=== PATIENT | female | born 1970 | race Caucasian/White ===

== ENCOUNTER 2019-09-28 18:24 | Emergency (ER) | payer SELFPAY ==
[2019-09-28] MEDS ORDERED: MAGNE/ALUM HYDROXD 30 ML UCUP ONE (19:10)
[2019-09-28] MEDS ORDERED: LIDOCAINE VISCOUS 2% SOLN 15 ML UDC ONE (19:11)
[2019-09-28 19:14] LABS: Urine Blood 2+ (NEG); Urine Glucose 2+ (NEG); Urine Protein 1+ (NEG)
[2019-09-28 19:51] LABS: Urine Bacteria >50 /HPF (<20); Urine Culture Reflex Order NOT NEEDED
--- NOTE | 2019-09-28 19:55 | ER ---
Nurse's Notes [facility] Name: Gwendolyn Castellanos Age: 49 yrs Sex: Female : 1970 Arrival Date: 09/28/2019 Time: 18:26 Bed 23 Private MD: Diagnosis: Low back pain;Radiculopathy, lumbosacral region;Stomatitis and related lesions;Urinary tract infection, site not specified Presentation: 09/28 18:28 Presenting complaint: Patient states: I am having a hard time walking, my L leg has ca1 sharp pains on the thigh area started over a week ago. Then I have sharp pain on my side on the rib area, mostly on the R, and goes to the back which has been going on for a while now, maybe a few months. And I feel sore on the roof of my mouth, on the L side. Transition of care: patient was not received from another setting of care. Onset of symptoms was September 28, 2019. Risk Assessment: Do you want to hurt yourself or someone else? Patient reports no desire to harm self or others. Initial Sepsis Screen: Does the patient meet any 2 criteria? No. Patient's initial sepsis screen is negative. Does the patient have a suspected source of infection? No. Patient's initial sepsis screen is negative. Care prior to arrival: None. 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 - Coronavirus screen:: The patient has NOT traveled to [place] in the past 14 days. The patient has NOT had contact with known/suspected case of Coronavirus?. - Social history:: Smoking status: Patient reports the use of cigarette tobacco products, smokes one-half pack cigarettes per day. - Ebola Screening: : Patient negative for fever greater than or equal to 101.5 degrees Fahrenheit, and additional compatible Ebola Virus Disease symptoms Patient denies exposure to infectious person Patient denies travel to an Ebola-affected area in the 21 days before illness onset No symptoms or risks identified at this time. Screenin:17 Abuse screen: Denies threats or abuse. Nutritional screening: No deficits noted. vc Tuberculosis screening: No symptoms or risk factors identified. Fall Risk None identified. Assessment: 18:45 Reassessment: Provider at bedside. vc 18:48 General: Appears in no apparent distress. comfortable, Behavior is calm, cooperative, vc appropriate for age. Pain: Complains of pain in left leg. Pain: Complains of pain in chest. Pain: Complains of pain in soft palate. Neuro: Level of Consciousness is awake, alert, obeys commands, Oriented to person, place, time. Cardiovascular: Capillary refill < 3 seconds Patient's skin is warm and dry. Respiratory: Airway is patent Respiratory effort is even, unlabored, Respiratory pattern is regular, symmetrical. GI: No signs and/or symptoms were reported involving the gastrointestinal system. : No signs and/or symptoms were reported regarding the genitourinary system. EENT: patient c/o pain in roof of mouth. Derm: Wound noted roof of mouth. Musculoskeletal: Capillary refill < 3 seconds, Range of motion: intact in all extremities. 19:20 Reassessment: Patient states, "are ya'll going to do anything about this leg pain, this vc is my biggest problem." Provider notified. 19:25 Reassessment: Patient and/or family updated on plan of care and expected duration. Pain vc level reassessed. Patient is alert, oriented x 3, equal unlabored respirations, skin warm/dry/pink. 19:45 Reassessment: Patients mother at nurses station stated, "do we know how much longer vc this will be, she's not a patient person." Patients mother informed that it shouldn't be much longer, the provider will see them shortly. 19:51 Reassessment: Patients mother at nursing station asking if we will be doing an xray and vc if we know how much longer it will be. Provider notified. 20:12 Reassessment: Patient and/or family updated on plan of care and expected duration. Pain vc level reassessed. Patient is alert, oriented x 3, equal unlabored respirations, skin warm/dry/pink. Vital Signs: 18:34 BP 116 / 80; Pulse 103; Resp 16 S; Temp 98.1(O); Pulse Ox 95% on R/A; Weight 88.9 kg ca1 (R); Height 5 ft. 2 in. (157.48 cm) (R); Pain 7/10; 19:15 BP 100 / 69; Pulse 95; Resp 17; Pulse Ox 94% on R/A; vc 20:00 BP 105 / 64; Pulse 86; Pulse Ox 94% on R/A; vc 18:34 Body Mass Index 35.85 (88.90 kg, 157.48 cm) ca1 ED Course: 18:26 Patient arrived in ED. as 18:32 Triage completed. ca1 18:34 Arm band placed on right wrist. ca1 18:35 Patient has correct armband on for positive identification. Bed in low position. Call vc light in reach. 18:39 Eden Kim, MEHREEN is Primary Nurse. vc 18:42 Elyse Garcia FNP-C is PHCP. snw 18:42 David Marin MD is Attending Physician. snw 19:16 Urine Culture Sent. vc 19:16 Urine Microscopic Only Sent. vc 19:30 Urine --Ancillary (enter results) Sent. vc 19:30 Urine Dipstick--Ancillary (enter results) Sent. vc 20:37 No provider procedures requiring assistance completed. Patient did not have IV access vc during this emergency room visit. Administered Medications: 19:15 Drug: GI Cocktail without - (Maalox Suspension 30 ml, Lidocaine Liquid 2 % 15 vc ml) Route: PO; 19:31 Follow up: Response: No adverse reaction; Marked relief of symptoms vc 20:33 Drug: TORadol 30 mg Route: IM; Site: right deltoid; vc 20:36 Follow up: Response: No adverse reaction; Medication administered at discharge. vc 20:34 Drug: Rocephin (cefTRIAXone) 1 grams Route: IM; Site: right vastus lateralis; vc 20:35 Follow up: Response: No adverse reaction; Medication administered at discharge. vc Outcome: 19:55 Discharge ordered by . snw 20:38 Discharged to home ambulatory, with family. vc 20:38 Condition: good 20:38 Discharge instructions given to patient, Instructed on discharge instructions, follow up and referral plans. medication usage, Demonstrated understanding of instructions, follow-up care, medications, Prescriptions given X 2. 20:40 Patient left the ED. vc Addendum: 10/01/2019 07:10 Addendum: Culture Results: Positive urine culture. No further action required. Bacteria e b sensitive to prescribed antibiotic. Signatures: Elyse Garcia, DIRECTOR ADVERTISING-C DIRECTOR ADVERTISING-Csnw Justyna Mendez Elizabeth eb Acob, Cheryl RN RN ca1 Eden Kim RN RN vc
--- NOTE | 2019-09-28 19:55 | EDPHYS ---
Physician Documentation [facility] Name: Gwendolyn Castellanos Age: 49 yrs Sex: Female : 1970 Arrival Date: 09/28/2019 Time: 18:26 Bed 23 Private MD: ED Physician David Marin HPI: 09/28 18:52 This 49 yrs old Female presents to ER via Ambulatory with complaints of Pain snw All Over, Mouth Problem. 18:52 Onset: The symptoms/episode began/occurred at an unknown time. Associated signs and snw symptoms: Pertinent positives: bilateral flank pain x several months, left anterior thigh pain x one week, left roof of mouth tender x 2 days.. It is unknown whether or not the patient has had similar symptoms in the past. The patient has not recently seen a physician, and does not have an established primary care provider, just moved to [facility]. 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 - Coronavirus screen:: The patient has NOT traveled to [place] in the past 14 days. The patient has NOT had contact with known/suspected case of Coronavirus?. - Social history:: Smoking status: Patient reports the use of cigarette tobacco products, smokes one-half pack cigarettes per day. - Ebola Screening: : Patient negative for fever greater than or equal to 101.5 degrees Fahrenheit, and additional compatible Ebola Virus Disease symptoms Patient denies exposure to infectious person Patient denies travel to an Ebola-affected area in the 21 days before illness onset No symptoms or risks identified at this time. ROS: 18:50 Constitutional: Negative for fever, chills, and weight loss, Eyes: Negative for injury, snw pain, redness, and discharge, ENT: Negative for injury and discharge, + left roof of mouth discomfort Neck: Negative for injury, pain, and swelling, Cardiovascular: Negative for chest pain, palpitations, and edema, Respiratory: Negative for shortness of breath, cough, wheezing, and pleuritic chest pain, Abdomen/GI: Negative for abdominal pain, nausea, vomiting, diarrhea, and constipation, bilateral flank discomfort x several months, radiation to left anterior thigh x 1 week Back: Negative for injury and pain, : Negative for injury, bleeding, discharge, and swelling, Skin: Negative for injury, rash, and discoloration, Neuro: Negative for headache, weakness, numbness, tingling, and seizure, Psych: Negative for depression, anxiety, suicide ideation, homicidal ideation, and hallucinations. Exam: 18:58 Constitutional: This is a well developed, well nourished patient who is awake, alert, snw and in no acute distress. Head/Face: Normocephalic, atraumatic. Eyes: Pupils equal round and reactive to light, extra-ocular motions intact. Lids and lashes normal. Conjunctiva and sclera are non-icteric and not injected. Cornea within normal limits. Periorbital areas with no swelling, redness, or edema. Neck: Trachea midline, no thyromegaly or masses palpated, and no cervical lymphadenopathy. Supple, full range of motion without nuchal rigidity, or vertebral point tenderness. No Meningismus. Chest/axilla: Normal chest wall appearance and motion. Nontender with no deformity. No lesions are appreciated. Cardiovascular: Regular rate and rhythm with a normal S1 and S2. No gallops, murmurs, or rubs. Normal PMI, no JVD. No pulse deficits. Respiratory: Lungs have equal breath sounds bilaterally, clear to auscultation and percussion. No rales, rhonchi or wheezes noted. No increased work of breathing, no retractions or nasal flaring. Abdomen/GI: Soft, non-tender, with normal bowel sounds. No distension or tympany. No guarding or rebound. No evidence of tenderness throughout. Back: No spinal tenderness. No costovertebral tenderness. Full range of motion. Skin: Warm, dry with normal turgor. Normal color with no rashes, no lesions, and no evidence of cellulitis. MS/ Extremity: Pulses equal, no cyanosis. Neurovascular intact. Full, normal range of motion. Neuro: Awake and alert, GCS 15, oriented to person, place, time, and situation. Cranial nerves II-XII grossly intact. Motor strength 5/5 in all extremities. Sensory grossly intact. Cerebellar exam normal. Normal gait. Psych: Awake, alert, with orientation to person, place and time. Behavior, mood, and affect are within normal limits. Vital Signs: 18:34 BP 116 / 80; Pulse 103; Resp 16 S; Temp 98.1(O); Pulse Ox 95% on R/A; Weight 88.9 kg ca1 (R); Height 5 ft. 2 in. (157.48 cm) (R); Pain 7/10; 19:15 BP 100 / 69; Pulse 95; Resp 17; Pulse Ox 94% on R/A; vc 20:00 BP 105 / 64; Pulse 86; Pulse Ox 94% on R/A; vc 18:34 Body Mass Index 35.85 (88.90 kg, 157.48 cm) ca1 MDM: 18:43 Patient medically screened. snw 19:58 Data reviewed: vital signs, nurses notes. Data interpreted: Pulse oximetry: on room air snw is 94 %. Interpretation: acceptable. Counseling: I had a detailed discussion with the patient and/or guardian regarding: the historical points, exam findings, and any diagnostic results supporting the discharge/admit diagnosis, lab results, the need for outpatient follow up, to return to the emergency department if symptoms worsen or persist or if there are any questions or concerns that arise at home. Special discussion: Based on the history and exam findings, there is no indication for further emergent testing or inpatient evaluation. I discussed with the patient/guardian the need to see the primary care provider for further evaluation of the symptoms. 09/28 18:49 Order name: Urine Culture [facility] 09/28 18:49 Order name: Urine Microscopic Only [facility] 09/28 19:08 Order name: Urine Dipstick--Ancillary (enter results) [facility] 09/28 19:08 Order name: Urine --Ancillary (enter results) [facility] 09/28 19:16 Order name: Urine --Ancillary; Complete Time: 19:30 EDMS 09/28 19:16 Order name: Urine Dipstick-Ancillary; Complete Time: 19:30 EDMS 09/28 18:49 Order name: Urine Dipstick-Ancillary (obtain specimen); Complete Time: 19:04 [facility] 09/28 19:52 Order name: Urine Microscopic Only; Complete Time: 19:53 EDMS Administered Medications: 19:15 Drug: GI Cocktail without - (Maalox Suspension 30 ml, Lidocaine Liquid 2 % 15 vc ml) Route: PO; 19:31 Follow up: Response: No adverse reaction; Marked relief of symptoms vc 20:33 Drug: TORadol 30 mg Route: IM; Site: right deltoid; vc 20:36 Follow up: Response: No adverse reaction; Medication administered at discharge. vc 20:34 Drug: Rocephin (cefTRIAXone) 1 grams Route: IM; Site: right vastus lateralis; vc 20:35 Follow up: Response: No adverse reaction; Medication administered at discharge. vc Disposition: 09/29 07:06 Co-signature as Attending Physician, David Marin MD I agree with the assessment and kdr plan of care. Disposition: 09/28/19 19:55 Discharged to Home. Impression: Low back pain, Radiculopathy, lumbosacral region, Stomatitis and related lesions, Urinary tract infection, site not specified. - Condition is Stable. - Discharge Instructions: Back Pain, Adult, Lumbosacral Radiculopathy, Musculoskeletal Pain, Urinary Tract Infection, Adult, Stomatitis, Cryotherapy, Rehydration, Adult, Heat Therapy, Preventive Dental Care, Adult. - Prescriptions for Augmentin 875- 125 mg Oral Tablet - take 1 tablet by ORAL route every 12 hours for 10 days; 20 tablet. orphenadrine citrate 100 mg Oral Tablet Sustained Release - take 1 tablet by ORAL route 2 times per day As needed; 20 tablet. - Work release form, Medication Reconciliation Form, Thank You Letter, Antibiotic Education, Prescription Opioid Use form. - Follow up: Emergency Department; When: As needed; Reason: Worsening of condition. Follow up: Private Physician; When: 2 - 3 days; Reason: Recheck today's complaints, Continuance of care, Re-evaluation by your physician. Signatures: Dispatcher [employer] EDMS David Marin MD MD kdr Therrien, Shelly, COFFEE HOST-C COFFEE HOST-[place] Corinne Davis RN RN [facility] Eden Kim RN RN vc Corrections: (The following items were deleted from the chart) 09/28 20:40 19:55 09/28/2019 19:55 Discharged to Home. Impression: Low back pain; Radiculopathy, vc lumbosacral region; Stomatitis and related lesions; Urinary tract infection, site not specified. Condition is Stable. Forms are Medication Reconciliation Form, Thank You Letter, Antibiotic Education, Prescription Opioid Use. Follow up: Emergency Department; When: As needed; Reason: Worsening of condition. Follow up: Private Physician; When: 2 - 3 days; Reason: Recheck today's complaints, Continuance of care, Re-evaluation by your physician. snw
[2019-09-28] MEDS ORDERED: LIDOCAINE 2% MPF 5 ML VIAL ONE (20:11)
[2019-09-28] MEDS ORDERED: KETOROLAC 30 MG/ML INJ ONE (20:11)
[2019-09-28] MEDS ORDERED: CEFTRIAXONE 1000 MG/VIAL ONE (20:12)
[2019-09-28] MEDS ORDERED: LIDOCAINE 1% MPF 5 ML VIAL ONE (20:14)
[2019-09-30 02:17] VITALS: TEMP 98.1
[2019-09-30 02:19] VITALS: O2SAT 94
[2019-09-30 02:20] VITALS: BP 105/64
== END 2019-09-28 20:40 | disposition home or self-care (01) ==
LOC: ER 18:24
DX: M54.17 Radiculopathy, lumbosacral region (principal); N39.0 Urinary tract infection, site not specified; K12.1 Other forms of stomatitis; F17.210 Nicotine dependence, cigarettes, uncomplicated
CPT/HCPCS: 81003; 81015; 81025; 87077; 87086; 87088; 87186; 96372; 99283

== ENCOUNTER 2019-11-28 13:47 | Emergency (ER) | payer SELFPAY ==
[2019-11-28] MEDS ORDERED: SMZ./TMP. 800/160 MG TABLET ONE (14:55)
[2019-11-28] MEDS ORDERED: NA CHLORIDE 0.9% 1,000 ML ONE ×2 (14:56→15:57)
[2019-11-28] MEDS ORDERED: FENTANYL CITR 100 MCG/2 ML ONE ×2 (14:56→15:49)
[2019-11-28] MEDS ORDERED: CLINDAMYCIN 900MG/D5W 900 MG/50 ML IVPB IV ONE (14:56)
[2019-11-28] MEDS ORDERED: ONDANSETRON 4 MG/2 ML VIAL ONE ×2 (14:56→15:56)
[2019-11-28] MEDS ORDERED: LIDOCAINE 1% W/EPI 1:100,000 MDV 20 ML VIAL ONE (14:56)
[2019-11-28 15:00] LABS: Basophils % 1.2 % (0-1.3); Hematocrit 45.5 % (36.0-45.0); Lymphocytes % 25.1 % (15.3-44.8); MPV 9.1 fL (7.6-11.3); RBC Red Blood Cell Count 4.94 M/uL (3.86-4.86)
[2019-11-28 15:29] LABS: Albumin 3.2 g/dL (3.4-5.0); Bilirubin Total 0.4 mg/dL (0.2-1.0); Potassium 4.2 mmol/L (3.5-5.1); Protein, Total 7.6 g/dL (6.4-8.2)
[2019-11-28] MEDS ORDERED: INSULIN -REGULAR HUMAN 50 UNIT/0.5 ML ML ONE (15:57)
--- NOTE | 2019-11-28 16:04 | EDPHYS ---
Physician Documentation [facility] Name: Gwendolyn Castellanos Age: 49 yrs Sex: Female : 1970 Arrival Date: 11/28/2019 Time: 13:49 Bed 6 Private MD: Harjit Wells HPI: 11/27 14:43 This 49 yrs old Female presents to ER via Ambulatory with complaints of javi Facial Swelling, Headache, Blurred Vision. 14:43 The patient complains of pain to the nose and left cheek. The patient describes the javi headache as constant. Onset: The symptoms/episode began/occurred 1 day(s) ago. Associated signs and symptoms: The patient has no apparent associated signs or symptoms. Severity of symptoms: At its worst the pain was mild. 14:44 The patient presents with cellulitis of the nose, the patient presents with a swollen javi area of the nose. Onset: The symptoms/episode began/occurred 2 day(s) ago. Possible cause(s): unknown. Associated signs and symptoms: Pertinent positives: erythema, swelling. Historical: - Allergies: 14:15 No Known Allergies; iw - Home Meds: 14:15 None [Active]; iw - PMHx: 14:15 None; iw - PSHx: 14:15 Cholecystectomy; iw - Immunization history:: Adult Immunizations up to date. - Social history:: Smoking status: Patient reports the use of cigarette tobacco products, 2-3 cigarettes per day . - Family history:: not pertinent. ROS: 14:44 Constitutional: Negative for fever, chills, and weight loss, Eyes: Negative for injury, javi pain, redness, and discharge, Neck: Negative for injury, pain, and swelling, Cardiovascular: Negative for chest pain, palpitations, and edema, Respiratory: Negative for shortness of breath, cough, wheezing, and pleuritic chest pain, Abdomen/GI: Negative for abdominal pain, nausea, vomiting, diarrhea, and constipation, Back: Negative for injury and pain, : Negative for injury, bleeding, discharge, and swelling, MS/Extremity: Negative for injury and deformity, Skin: Negative for injury, rash, and discoloration, Neuro: Negative for headache, weakness, numbness, tingling, and seizure, Psych: Negative for depression, anxiety, suicide ideation, homicidal ideation, and hallucinations, Allergy/Immunology: Negative for hives, rash, and allergies, Endocrine: Negative for neck swelling, polydipsia, polyuria, polyphagia, and marked weight changes. 14:44 ENT: Positive for rhinorrhea, painfully swollen internal left nares, laterally. Exam: 14:44 Constitutional: This is a well developed, well nourished patient who is awake, alert, javi and in no acute distress. Eyes: Pupils equal round and reactive to light, extra-ocular motions intact. Lids and lashes normal. Conjunctiva and sclera are non-icteric and not injected. Cornea within normal limits. Periorbital areas with no swelling, redness, or edema. Neck: Trachea midline, no thyromegaly or masses palpated, and no cervical lymphadenopathy. Supple, full range of motion without nuchal rigidity, or vertebral point tenderness. No Meningismus. Chest/axilla: Normal chest wall appearance and motion. Nontender with no deformity. No lesions are appreciated. Cardiovascular: Regular rate and rhythm with a normal S1 and S2. No gallops, murmurs, or rubs. Normal PMI, no JVD. No pulse deficits. Respiratory: Lungs have equal breath sounds bilaterally, clear to auscultation and percussion. No rales, rhonchi or wheezes noted. No increased work of breathing, no retractions or nasal flaring. Abdomen/GI: Soft, non-tender, with normal bowel sounds. No distension or tympany. No guarding or rebound. No evidence of tenderness throughout. Back: No spinal tenderness. No costovertebral tenderness. Full range of motion. Skin: Warm, dry with normal turgor. Normal color with no rashes, no lesions, and no evidence of cellulitis. MS/ Extremity: Pulses equal, no cyanosis. Neurovascular intact. Full, normal range of motion. Neuro: Awake and alert, GCS 15, oriented to person, place, time, and situation. Cranial nerves II-XII grossly intact. Motor strength 5/5 in all extremities. Sensory grossly intact. Cerebellar exam normal. Normal gait. Psych: Awake, alert, with orientation to person, place and time. Behavior, mood, and affect are within normal limits. 14:44 Head/face: Noted is erythema, swelling, tenderness, that is mild, that is moderate, of the nose. 14:44 ENT: Nose: Nasal mucosa: edematous, Examination of the other nostril shows no obvious abnormality, Mouth: is normal, Posterior pharynx: is normal, no acute changes, Airway: normal, no evidence of obstruction. Vital Signs: 14:10 BP 90 / 76; Pulse 107; Resp 16 S; Temp 98.3(TE); Pulse Ox 98% on R/A; Weight 88.45 kg; iw Height 5 ft. 2 in. (157.48 cm); Pain 8/10; 15:00 BP 129 / 70; Pulse 94; Resp 17; Pulse Ox 97% ; bp 16:07 BP 160 / 85; Pulse 99; Resp 19; Pulse Ox 95% ; bp 16:51 BP 167 / 83; Pulse 99; Resp 16; Temp 98.5; Pulse Ox 96% ; bp 14:10 Body Mass Index 35.67 (88.45 kg, 157.48 cm) iw Gee Coma Score: 16:02 Eye Response: spontaneous(4). Verbal Response: oriented(5). Motor Response: obeys [facility] commands(6). Total: 15. Procedures: 16:02 I \T\ D: Incision and drainage was performed for an abscess of the left nose Prepped with [facility] Betadine, Anesthetized with 1 ml's 1% Lidocaine w/ Epi. Incised with #11 blade. Drained small amount purulent fluid. Packed with sterile gauze, Dressing: neosporin the patient tolerated the procedure well. MDM: 13:56 Patient medically screened. [facility] 14:48 Data reviewed: vital signs, nurses notes, lab test result(s). [facility] 16:11 Special discussion: pt was discussed importance of abx therapy at home, close follow javi up, ada 1800 diet , close follow up, rter if symptoms increase or persist. 11/27 14:42 Order name: CBC with Diff; Complete Time: 15:[address] [facility] 11/27 14:42 Order name: Comprehensive Metabolic Panel; Complete Time: 15:[address] [facility] 11/27 14:43 Order name: Wound Culture [facility] 11/27 14:43 Order name: Dressing - Wound; Complete Time: 14:[address] [facility] 11/27 14:43 Order name: Gloves, Sterile; Complete Time: 14:[address] [facility] 11/27 14:43 Order name: Setup Suture Tray; Complete Time: 14:[address] [facility] Administered Medications: 14:45 Drug: Bactrim (160 mg-800 mg (DS) 1 tablet Route: PO; bp 16:54 Follow up: Response: No adverse reaction bp 14:45 Drug: Lidocaine-Epinephrine -1%: (1:100,000) 2 ml Volume: 20 ml; Route: Infiltration; bp 14:45 Drug: Bactroban Ointment 2 % 1 application Route: Topical; Site: affected area; bp 14:50 Drug: Clindamycin 900 mg Route: IVPB; Infused Over: 30 mins; Site: right antecubital; bp 16:55 Follow up: IV Status: Completed infusion; IV Intake: 100ml bp 14:50 Drug: NS 0.9% 1000 ml Route: IV; Rate: 1 bolus; Site: right antecubital; bp 16:54 Follow up: IV Status: Completed infusion; IV Intake: 1000ml bp 14:50 Drug: fentaNYL (PF) 50 mcg Route: IVP; Site: right antecubital; bp 16:54 Follow up: Response: No adverse reaction bp 14:50 Drug: Zofran (Ondansetron) 4 mg Route: IVP; Site: right antecubital; bp 16:54 Follow up: Response: No adverse reaction bp 15:46 Drug: fentaNYL (PF) 50 mcg Route: IVP; Site: right antecubital; bp 16:53 Follow up: Response: Pain is decreased bp 15:50 Drug: Insulin Regular Human 10 units {Co-Signature: hb (Caroline Orozco RN).} Route: bp IVP; Site: right antecubital; 16:54 Follow up: Response: No adverse reaction bp 15:50 Drug: Insulin Regular Human 10 units {Co-Signature: hb (Caroline Orozco RN).} Route: bp Sub-Q; Site: right upper abdomen; 16:53 Follow up: Response: No adverse reaction bp 15:57 Drug: Zofran (Ondansetron) 4 mg Route: IVP; Site: right antecubital; bp 16:53 Follow up: Response: No adverse reaction bp 15:58 Drug: NS 0.9% 1000 ml Route: IV; Rate: 1 bolus; Site: right antecubital; bp 16:53 Follow up: IV Status: Completed infusion; IV Intake: 1000ml bp 16:18 Drug: metFORMIN 1000 mg Route: PO; hb 16:53 Follow up: Response: No adverse reaction bp Disposition: 11/28/19 16:03 Discharged to Home. Impression: Abscess, furuncle and carbuncle of nose, Cellulitis and acute lymphangitis of face - nose, Tobacco abuse counseling, Tobacco use, Type 2 diabetes mellitus, Hyperglycemia, unspecified. - Condition is Stable. - Discharge Instructions: Skin Abscess, Cellulitis, Adult, Type 2 Diabetes Mellitus, Diagnosis, Adult, Hyperglycemia, Incision and Drainage, Steps to Quit Smoking, Smoking Hazards, Skin Abscess, [id number], Cellulitis, Adult, [id number], Type 2 Diabetes Mellitus, Diagnosis, Adult, [id number], Incision and Drainage, Care After. - Prescriptions for Bactroban 2 % Topical Ointment - Apply to affected area 1 application by TOPICAL route every 12 hours; 30 gram. Clindamycin HCl 300 mg Oral Capsule - take 1 capsule by ORAL route every 6 hours for 10 days; 40 capsule. Tylenol- Codeine #3 300-30 mg Oral Tablet - take 2 tablets by ORAL route every 6 hours As needed; 26 tablet. Bactrim DS 800- 160 mg Oral Tablet - take 1 tablet by ORAL route every 12 hours for 10 days; 20 tablet. Metformin 850 mg Oral Tablet - take 1 tablet by ORAL route 2 times per day with morning and evening meals; 20 tablet. - Medication Reconciliation Form, Thank You Letter, Antibiotic Education, Prescription Opioid Use form. - Follow up: Private Physician; When: 2 - 3 days; Reason: Recheck today's complaints, Continuance of care, Re-evaluation by your physician. Follow up: Gwendolyn Johansen; When: 2 - 3 days; Reason: Recheck today's complaints, Re-evaluation by your physician. - Problem is new. - Symptoms have improved. Signatures: Dispatcher [employer] EDHarjit Medina MD MD cha Williams, Irene, RN RN Caroline Orozco RN RN hb Peltier, Brian, RN RN bp Heather Baxter RN hb Corrections: (The following items were deleted from the chart) 16:55 16:03 11/28/2019 16:03 Discharged to Home. Impression: Abscess, furuncle and carbuncle bp of nose; Cellulitis and acute lymphangitis of face - nose; Tobacco abuse counseling; Tobacco use; Type 2 diabetes mellitus; Hyperglycemia, unspecified. Condition is Stable. Discharge Instructions: Skin Abscess, Cellulitis, Adult, Incision and Drainage, Skin Abscess, [id number], Cellulitis, Adult, [id number], Incision and Drainage, Care After. Prescriptions for Bactroban 2 % Topical Ointment - Apply to affected area 1 application by TOPICAL route every 12 hours; 30 gram, Clindamycin HCl 300 mg Oral Capsule - take 1 capsule by ORAL route every 6 hours for 10 days; 40 capsule, Tylenol-Codeine #3 300-30 mg Oral Tablet - take 2 tablets by ORAL route every 6 hours As needed; 26 tablet, Bactrim DS 800-160 mg Oral Tablet - take 1 tablet by ORAL route every 12 hours for 10 days; 20 tablet. and Forms are Medication Reconciliation Form, Thank You Letter, Antibiotic Education, Prescription Opioid Use. Follow up: Private Physician; When: 2 - 3 days; Reason: Recheck today's complaints, Continuance of care, Re-evaluation by your physician. Follow up: Gwendolyn Johansen; When: 2 - 3 days; Reason: Recheck today's complaints, Re-evaluation by your physician. Problem is new. Symptoms have improved. javi
--- NOTE | 2019-11-28 16:04 | ER ---
Nurse's Notes [facility] Name: Gwendolyn Castellanos Age: 49 yrs Sex: Female : 1970 Arrival Date: 11/28/2019 Time: 13:49 Bed 6 Private MD: Diagnosis: Abscess, furuncle and carbuncle of nose;Cellulitis and acute lymphangitis of face-nose;Tobacco abuse counseling;Tobacco use;Type 2 diabetes mellitus;Hyperglycemia, unspecified Presentation: 11/27 14:10 Chief complaint: Patient states: headache and painful, tender area on left side of nose iw since Thursday, denies fever, reports mild cough, has been taking tylenol, and allergy medicine, headache feels like pressure, radiates from front to top of head , aggravated by movement and light, has hx of migraines, this one feels worse. Coronavirus screen: Proceed with normal triage. Patient reports a cough. Patient denies shortness of breath or difficulty breathing. Patient denies measured and/or subjective temperature greater than 100.4F prior to today's visit. Patient denies travel on a cruise ship or to a country the [facility] currently lists as an affected area. Patient denies contact with known and/or suspected case of COVID-19. Ebola Screen: Patient negative for fever greater than or equal to 101.5 degrees Fahrenheit, and additional compatible Ebola Virus Disease symptoms Patient denies exposure to infectious person. Patient denies travel to an Ebola-affected area in the 21 days before illness onset. No symptoms or risks identified at this time. Initial Sepsis Screen: Does the patient meet any 2 criteria? No. Patient's initial sepsis screen is negative. Does the patient have a suspected source of infection? No. Patient's initial sepsis screen is negative. Risk Assessment: Do you want to hurt yourself or someone else? Patient reports no desire to harm self or others. Onset of symptoms was November 25, 2019. 14:10 Method Of Arrival: Ambulatory iw 14:10 Acuity: TERESA 3 iw Triage Assessment: 14:15 Headache History: Denies prior headaches. General: Appears in no apparent distress. bp comfortable, obese, Behavior is cooperative, appropriate for age, anxious. Pain: Pain currently is 7 out of 10 on a pain scale. Pain began gradually, Also complains of no other associated symptoms. EENT: No deficits noted. Neuro: Level of Consciousness is awake, alert, obeys commands, Oriented to person, place, time, situation, Appropriate for age. Cardiovascular: No deficits noted. Respiratory: No deficits noted. GI: No signs and/or symptoms were reported involving the gastrointestinal system. : No signs and/or symptoms were reported regarding the genitourinary system. Derm: Abscess located on left cheek. Musculoskeletal: No deficits noted. Historical: - Allergies: 14:15 No Known Allergies; iw - Home Meds: 14:15 None [Active]; iw - PMHx: 14:15 None; iw - PSHx: 14:15 Cholecystectomy; iw - Immunization history:: Adult Immunizations up to date. - Social history:: Smoking status: Patient reports the use of cigarette tobacco products, 2-3 cigarettes per day . - Family history:: not pertinent. Screenin:03 Abuse screen: Denies threats or abuse. Denies injuries from another. Nutritional bp screening: No deficits noted. Tuberculosis screening: No symptoms or risk factors identified. Fall Risk None identified. Assessment: 14:15 General: SEE TRIAGE NOTE. bp 16:06 Reassessment: D/C ON HOLD FOR IVF COMPLETION. bp 16:51 Reassessment: PT D/C HOME AMBULATORY, DX WITH ABSCESS OF NOSE. bp Vital Signs: 14:10 BP 90 / 76; Pulse 107; Resp 16 S; Temp 98.3(TE); Pulse Ox 98% on R/A; Weight 88.45 kg; iw Height 5 ft. 2 in. (157.48 cm); Pain 8/10; 15:00 BP 129 / 70; Pulse 94; Resp 17; Pulse Ox 97% ; bp 16:07 BP 160 / 85; Pulse 99; Resp 19; Pulse Ox 95% ; bp 16:51 BP 167 / 83; Pulse 99; Resp 16; Temp 98.5; Pulse Ox 96% ; bp 14:10 Body Mass Index 35.67 (88.45 kg, 157.48 cm) iw [place] Coma Score: 16:02 Eye Response: spontaneous(4). Verbal Response: oriented(5). Motor Response: obeys javi commands(6). Total: 15. ED Course: 13:49 Patient arrived in ED. fj1 13:56 Harjit Garcia MD is Attending Physician. javi 14:11 Alli Powell MEHREEN is Primary Nurse. bp 14:14 Triage completed. iw 14:46 Arm band placed on. bp 14:58 Initial lab(s) drawn, by me, sent to lab. Inserted saline lock: 20 gauge in right em1 antecubital area, using aseptic technique. Blood collected. 15:08 Patient has correct armband on for positive identification. Placed in gown. Bed in low bp position. Call light in reach. Side rails up X2. 16:03 Gwendolyn Johansen MD is Referral Physician. [facility] 16:05 Assist provider with I \T\ D: of an abscess on NASAL Set up I\T\D tray. Performed by Harjit Garcia MD Culture sent to lab. Wound packed. iodoform gauze, Patient tolerated well. 16:51 IV discontinued, intact, bleeding controlled, No redness/swelling at site. Pressure bp dressing applied. Administered Medications: 14:45 Drug: Bactrim (160 mg-800 mg (DS) 1 tablet Route: PO; bp 16:54 Follow up: Response: No adverse reaction bp 14:45 Drug: Lidocaine-Epinephrine -1%: (1:100,000) 2 ml Volume: 20 ml; Route: Infiltration; bp 14:45 Drug: Bactroban Ointment 2 % 1 application Route: Topical; Site: affected area; bp 14:50 Drug: Clindamycin 900 mg Route: IVPB; Infused Over: 30 mins; Site: right antecubital; bp 16:55 Follow up: IV Status: Completed infusion; IV Intake: 100ml bp 14:50 Drug: NS 0.9% 1000 ml Route: IV; Rate: 1 bolus; Site: right antecubital; bp 16:54 Follow up: IV Status: Completed infusion; IV Intake: 1000ml bp 14:50 Drug: fentaNYL (PF) 50 mcg Route: IVP; Site: right antecubital; bp 16:54 Follow up: Response: No adverse reaction bp 14:50 Drug: Zofran (Ondansetron) 4 mg Route: IVP; Site: right antecubital; bp 16:54 Follow up: Response: No adverse reaction bp 15:46 Drug: fentaNYL (PF) 50 mcg Route: IVP; Site: right antecubital; bp 16:53 Follow up: Response: Pain is decreased bp 15:50 Drug: Insulin Regular Human 10 units {Co-Signature: bonnie (Caroline Orozco RN).} Route: bp IVP; Site: right antecubital; 16:54 Follow up: Response: No adverse reaction bp 15:50 Drug: Insulin Regular Human 10 units {Co-Signature: bonnei (Caroline Orozco RN).} Route: bp Sub-Q; Site: right upper abdomen; 16:53 Follow up: Response: No adverse reaction bp 15:57 Drug: Zofran (Ondansetron) 4 mg Route: IVP; Site: right antecubital; bp 16:53 Follow up: Response: No adverse reaction bp 15:58 Drug: NS 0.9% 1000 ml Route: IV; Rate: 1 bolus; Site: right antecubital; bp 16:53 Follow up: IV Status: Completed infusion; IV Intake: 1000ml bp 16:18 Drug: metFORMIN 1000 mg Route: PO; hb 16:53 Follow up: Response: No adverse reaction bp Intake: 16:53 IV: 1000ml; Total: 1000ml. bp 16:54 IV: 1000ml; Total: 2000ml. bp 16:55 IV: 100ml; Total: 2100ml. bp Outcome: 16:03 Discharge ordered by . javi 16:51 Discharged to home ambulatory. bp 16:51 Condition: stable 16:51 Discharge instructions given to patient, Instructed on discharge instructions, follow up and referral plans. medication usage, Demonstrated understanding of instructions, follow-up care, medications, Prescriptions given X 4. 16:55 Patient left the ED. bp Signatures: Harjit Garcia MD MD cha Williams, Irene, RN RN Jean-Pierre Mendez em1 Caroline Orozco RN RN hb Peltier, Brian, RN RN bp James, Frank 1 Caroline Orozco RN
[2019-11-28] MEDS ORDERED: METFORMIN HCL 500 MG TAB ONE (16:17)
[2019-11-28 17:19] VITALS: BP 167/83; TEMP 98.5; O2SAT 96
== END 2019-11-28 16:55 | disposition home or self-care (01) ==
LOC: ER 13:47
PROC: 0H91XZZ Drainage of Face Skin, External Approach (ICD-10-PCS; principal; 2019-11-28)
DX: J34.0 Abscess, furuncle and carbuncle of nose (principal); L03.212 Acute lymphangitis of face; E11.65 Type 2 diabetes mellitus with hyperglycemia; Z72.0 Tobacco use; Z71.6 Tobacco abuse counseling
CPT/HCPCS: 36415; 80053; 85025; 87070; 87077; 87186; 87205; 96365; 96366; 96372; 96375; 99284; J2405; J3010; J7030

== ENCOUNTER 2020-08-24 16:51 | Emergency (ER) | payer SELFPAY ==
[2020-08-24 21:26] LABS: Urine Blood 1+ (NEG); Urine Glucose 2+ (NEG); Urine Protein TRACE (NEG); Urine pH 5.5 (5.0-7.0)
[2020-08-24 21:31] LABS: Absolute Lymphocytes (CBC) 5.3 K/uL (0.7-4.9); Basophils % 0.8 % (0-1.3); Hematocrit 45.7 % (36.0-45.0); Lymphocytes % 38.7 % (15.3-44.8); MPV 9.2 fL (7.6-11.3); RBC Red Blood Cell Count 4.94 M/uL (3.86-4.86)
[2020-08-24 21:33] LABS: Protime INR 0.85
[2020-08-24] MEDS ORDERED: MORPHINE 2 MG/ML SYR ONE (21:36)
[2020-08-24] MEDS ORDERED: ONDANSETRON 4 MG/2 ML VIAL ONE (21:36)
[2020-08-24] MEDS ORDERED: FAMOTIDINE 20 MG/2 ML VIAL IV ONE (21:36)
[2020-08-24 21:52] LABS: Barbiturates NEGATIVE (NEGATIVE); Benzodiazepines NEGATIVE (NEGATIVE); Cocaine NEGATIVE (NEGATIVE); METHAMPHETAM NEGATIVE (NEGATIVE); Methadone NEGATIVE (NEGATIVE); Opiates NEGATIVE (NEGATIVE); Phencyclidine NEGATIVE (NEGATIVE); THC Cannibis NEGATIVE (NEGATIVE)
[2020-08-24 21:53] LABS: ALT/SGPT 36 U/L (12-78); AST/SGOT 18 U/L (15-37); Albumin 3.4 g/dL (3.4-5.0); Alkaline Phosphatase 119 U/L (45-117); BUN Blood Urea Nitrogen 11 mg/dL (7-18); Bicarbonate 25 mmol/L (21-32); Bilirubin Direct < 0.1 mg/dL (0-0.2); Bilirubin Total 0.4 mg/dL (0.2-1.0); Glucose Level 204 mg/dL (74-106); Lipase 179 U/L (73-393); NT PRO-BNP 15 pg/mL (<125); Potassium 3.7 mmol/L (3.5-5.1); Protein, Total 7.4 g/dL (6.4-8.2); Sodium Level 139 mmol/L (136-145); Troponin (Emerg Dept Use Only) < 0.02 ng/mL (0.0-0.045)
--- NOTE | 2020-08-24 22:29 | EKG ---
Test Date: 2020-08-24 Test Time: 17:23:36 Real Estate Portfolio Manager: JULIANNA MEASUREMENT RESULTS: Intervals: Rate: 98 WY: 170 QRSD: 72 QT: 350 QTc: 446 Hardy: P: 67 WY: 170 QRS: 28 T: 60 INTERPRETIVE STATEMENTS: Normal sinus rhythm Low voltage QRS Cannot rule out Anterior infarct, age undetermined Abnormal ECG No previous ECG available for comparison Electronically Signed On 08-24-20 22:29:17 SEWING MACHINE REPAIRER HELPER by Ray Newton
--- NOTE | 2020-08-25 00:43 | EDPHYS ---
Physician Documentation [facility] Name: Gwendolyn Castellanos Age: 50 yrs Sex: Female : 1970 Arrival Date: 08/24/2020 Time: 16:52 Bed 15 Private MD: Ad Soni V ED Physician John Alejandra HPI: 08/24 21:17 This 50 yrs old Female presents to ER via Ambulatory with complaints of mh7 Breathing Difficulty, Chest Pain. 21:17 The patient or guardian reports chest pain that is located primarily in the substernal mh7 area. 21:18 Onset: 1 week(s) ago. The pain does not radiate. Associated signs and symptoms: mh7 Pertinent positives: abdominal pain, cough, nausea, Pertinent negatives: diaphoresis, dizziness, headache, lower extremity pain, lower extremity swelling, lightheadedness, near syncope, palpitations, recent travel, shortness of breath, syncope, vomiting. Associated signs and symptoms: Pertinent positives: diarrhea. The chest pain is described as sharp. Duration: The patient or guardian reports multiple episodes, that are intermittent, that wax and wane, with no pattern. Modifying factors: The symptoms are alleviated by nothing. the symptoms are aggravated by nothing. Severity of pain: At its worst the pain was mild 5 day(s) ago, in the emergency department the pain is unchanged. The patient has experienced similar episodes in the past, multiple times. 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 - Social history:: Smoking status: Patient reports the use of cigarette tobacco products, < 1/2 ppd. ROS: 21:18 Constitutional: Negative for fever, chills, and weight loss, Eyes: Negative for injury, mh7 pain, redness, and discharge, ENT: Negative for injury, pain, and discharge, Neck: Negative for injury, pain, and swelling, Respiratory: Negative for shortness of breath, cough, wheezing, and pleuritic chest pain, Back: Negative for injury and pain, : Negative for injury, bleeding, discharge, and swelling. 21:18 Skin: Negative for injury, rash, and discoloration, Neuro: Negative for headache, weakness, numbness, tingling, and seizure, Psych: Negative for depression, anxiety, suicide ideation, homicidal ideation, and hallucinations, Allergy/Immunology: Negative for hives, rash, and allergies, Endocrine: Negative for neck swelling, polydipsia, polyuria, polyphagia, and marked weight changes, Hematologic/Lymphatic: Negative for swollen nodes, abnormal bleeding, and unusual bruising. 21:18 Abdomen/GI: Positive for abdominal pain, nausea, diarrhea, of the epigastric area, right upper quadrant and left upper quadrant, for one week. 21:18 MS/extremity: Positive for pain, of the right hip, intermittently for 3 weeks. Exam: 21:18 Constitutional: This is a well developed, well nourished patient who is awake, alert, mh7 and in no acute distress. Head/Face: Normocephalic, atraumatic. Eyes: Pupils equal round and reactive to light, extra-ocular motions intact. Lids and lashes normal. Conjunctiva and sclera are non-icteric and not injected. Cornea within normal limits. Periorbital areas with no swelling, redness, or edema. Neck: Trachea midline, no thyromegaly or masses palpated, and no cervical lymphadenopathy. Supple, full range of motion without nuchal rigidity, or vertebral point tenderness. No Meningismus. Chest/axilla: Normal chest wall appearance and motion. Nontender with no deformity. No lesions are appreciated. Cardiovascular: Regular rate and rhythm with a normal S1 and S2. No gallops, murmurs, or rubs. Normal PMI, no JVD. No pulse deficits. Respiratory: Lungs have equal breath sounds bilaterally, clear to auscultation and percussion. No rales, rhonchi or wheezes noted. No increased work of breathing, no retractions or nasal flaring. 21:18 Back: No spinal tenderness. No costovertebral tenderness. Full range of motion. Skin: Warm, dry with normal turgor. Normal color with no rashes, no lesions, and no evidence of cellulitis. 21:18 Neuro: Awake and alert, GCS 15, oriented to person, place, time, and situation. Cranial nerves II-XII grossly intact. Motor strength 5/5 in all extremities. Sensory grossly intact. Cerebellar exam normal. Normal gait. Psych: Awake, alert, with orientation to person, place and time. Behavior, mood, and affect are within normal limits. 21:18 Abdomen/GI: Inspection: obese Bowel sounds: normal, in all quadrants, Palpation: moderate abdominal tenderness, in the epigastric area, right upper quadrant and left upper quadrant, Rectal exam: the exam is deferred, because of patient request, Indicators: McBurney's point is not tender, Hoffman's sign is negative, Rovsing's sign is negative, Obturator sign is negative, Psoas sign is negative, Liver: no appreciated palpable abnormalities, Hernia: not appreciated. 21:18 Musculoskeletal/extremity: Extremities: noted in the right lateral hip : tenderness, mild, ROM: intact in all extremities, Circulation is intact in all extremities. Pulses: are normal with no appreciated deficits, Perfusion: the patient is normally perfused throughout, Perfusion: the extremity is normally perfused throughout, Calf tenderness, is absent, Edema, is not appreciated, Sensation intact. Compartment Syndrome exam of affected extremity: is normal. no numbness, no tingling, no sensation deficit, no palor, no weak pulses, Joints: the right hip displays tenderness, Weight bearing: able to fully bear weight, without difficulty, Tendon exam: specific tendon testing normal through active and passive range of motion Calves: are non-tender, have equal circumference. Vital Signs: 17:16 BP 142 / 73; Pulse 97; Resp 17; Temp 97.9(TE); Pulse Ox 99% on R/A; Weight 88.45 kg; ss Height 5 ft. 3 in. (160.02 cm); Pain 8/10; 21:00 BP 119 / 67; Pulse 75; Resp 16; Pulse Ox 97% on R/A; zb 22:00 BP 132 / 63; Pulse 75; Resp 18; Pulse Ox 96% on R/A; zb 23:00 BP 123 / 55; Pulse 76; Resp 16; Pulse Ox 95% on R/A; zb 09 00:00 BP 113 / 48; Pulse 74; Resp 16; Pulse Ox 94% on R/A; zb 08/24 17:16 Body Mass Index 34.54 (88.45 kg, 160.02 cm) ss MDM: 00:39 Differential diagnosis: abnormal EKG, acute myocardial infarction, acute pericarditis, [facility] anxiety, coronary artery disease chest wall pain, congestive heart failure cholecystitis, Cholelithiasis costochondritis, esophagitis, gastritis, pancreatitis, peptic ulcer disease, pneumonia, pneumothorax, pulmonary embolus. HEART Score: History: Slightly Suspicious (0), ECG: Non specific repolarization disturbance / LBTB / PM (1), Age: > 45 and < 65 years (1), Risk Factors: 1 or 2 risk factors (1), [DM] Troponin: < or = 1 x Normal Limit (0), Total Score = 3. Data reviewed: vital signs, nurses notes, lab test result(s), cardiac enzymes, CBC, electrolytes, urinalysis, urine drug screen, EKG, radiologic studies, CT scan, plain films. Data interpreted: Pulse oximetry: on room air is 95 %. Interpretation: normal. Counseling: I had a detailed discussion with the patient and/or guardian regarding: the historical points, exam findings, and any diagnostic results supporting the discharge/admit diagnosis, lab results, radiology results. Response to treatment: the patient's symptoms have resolved after treatment, the patient's blood pressure is in an acceptable range, mental status has returned to baseline, the patient no longer shows bradycardia, the patient is not short of breath, the patient is not tachycardic, the patient's pain is gone, the patient's temperature has normalized. Refusal of service: The patient/guardian displays adequate decision making capability and despite a detailed discussion of alternatives, benefits, risks, and consequences refuses: all lab tests, repeat troponin. 00:42 Patient medically screened. [facility] 08/24 20:57 Order name: Basic Metabolic Panel; Complete Time: 22:13 [facility] 08/24 20:57 Order name: CBC with Diff; Complete Time: 22:13 [facility] 08/24 20:57 Order name: LFT's; Complete Time: 22:13 [facility] 08/24 20:57 Order name: Magnesium; Complete Time: 22:13 [facility] 08/24 20:57 Order name: NT PRO-BNP; Complete Time: 22:13 [facility] 08/24 20:57 Order name: PT-INR; Complete Time: 22:13 [facility] 08/24 20:57 Order name: Troponin (emerg Dept Use Only); Complete Time: 22:13 [facility] 08/24 20:57 Order name: XRAY Chest (1 view) [facility] 08/24 20:57 Order name: Lipase; Complete Time: 22:13 [facility] 08/24 21:16 Order name: CPK; Complete Time: 22:13 [facility] 08/24 21:21 Order name: Urine Dipstick--Ancillary (enter results); Complete Time: 22:13 3 08/24 21:24 Order name: UDS; Complete Time: 22:13 [facility] 08/24 21:24 Order name: Hip Right 2 View XRAY [facility] 08/24 20:57 Order name: EKG; Complete Time: 20:58 [facility] 08/24 20:57 Order name: Cardiac monitoring; Complete Time: 21:12 [facility] 08/24 20:57 Order name: EKG - Nurse/Tech; Complete Time: 21:04 [facility] 08/24 20:57 Order name: IV Saline Lock; Complete Time: 21:12 [facility] 08/24 20:57 Order name: Labs collected and sent; Complete Time: 21:12 [facility] 08/24 20:57 Order name: O2 Per Protocol; Complete Time: 21:04 [facility] 08/24 20:57 Order name: O2 Sat Monitoring; Complete Time: 21:04 [facility] 08/24 20:58 Order name: Urine Dipstick-Ancillary (obtain specimen); Complete Time: 21:05 [facility] 08/24 20:58 Order name: Urine Test (obtain specimen); Complete Time: 21:49 [facility] 08/24 22:14 Order name: CT Chest For PE Angio [facility] 08/24 22:14 Order name: CT Abd/Pelvis - IV Contrast Only [facility] Administered Medications: 08/24 21:31 Drug: Pepcid 20 mg Route: IVP; Site: right antecubital; zb 23:10 Follow up: Response: No adverse reaction zb 21:32 Drug: morphine 2 mg Route: IVP; Site: right antecubital; zb 21:45 Follow up: Response: No adverse reaction; Pain is decreased zb 21:32 Drug: Zofran (Ondansetron) 4 mg Route: IVP; Site: right antecubital; zb 23:11 Follow up: Response: No adverse reaction zb Disposition: 08/25/20 00:42 Patient has left against medical advice. Impression: Upper abdominal pain, unspecified, Diarrhea, unspecified, Chest pain, unspecified. - Patients states they are going to Home. - Condition is Stable. - Discharge Instructions: Abdominal Pain, Adult, Food Choices to Help Relieve Diarrhea, Adult, Diarrhea, Adult, Nonspecific Chest Pain, Veli-ae-Saby. - Prescriptions for Zofran ODT 4 mg Oral tablet,disintegrating - place 1 tablet by TRANSLINGUAL route every 8 hours As needed; 6 tablet. Bentyl 20 mg Oral Tablet - take 1 tablet by ORAL route every 6 hours As needed; 20 tablet. Pepcid 20 mg Oral Tablet - take 1 tablet by ORAL route every 12 hours for 5 days; 10 tablet. Cipro 500 mg Oral Tablet - take 1 tablet by ORAL route every 12 hours for 5 days; 10 tablet. Work release form form. Follow up: Private Physician; When: 1 - 2 days; Reason: Worsening of condition, Recheck today's complaints, Continuance of care, Re-evaluation by your physician. Follow up: Ray Newton MD; When: 1 - 2 days; Reason: Worsening of condition, Recheck today's complaints. - Problem is an ongoing problem. - Symptoms have improved. Signatures: Dispatcher [employer] EDMS Barby lFores RN RN ss John Alejandra MD MD 7 Ciera Rosales RN RN zb Corrections: (The following items were deleted from the chart) 08/25 00:58 00:42 08/25/2020 00:42 Patients has left against medical advice. Impression: Upper zb abdominal pain, unspecified; Diarrhea, unspecified; Chest pain, unspecified. Patient states they are going to Home. Condition is Stable. Follow up: Private Physician; When: 1 - 2 days; Reason: Worsening of condition, Recheck today's complaints, Continuance of care, Re-evaluation by your physician. Follow up: Ray Newton; When: 1 - 2 days; Reason: Worsening of condition, Recheck today's complaints. Problem is an ongoing problem. Symptoms have improved. mh7
--- NOTE | 2020-08-25 00:43 | ER ---
Nurse's Notes [facility] Name: Gwendolyn Castellanos Age: 50 yrs Sex: Female : 1970 Arrival Date: 08/24/2020 Time: 16:52 Bed 15 Private MD: Ad Soni V Diagnosis: Upper abdominal pain, unspecified;Diarrhea, unspecified;Chest pain, unspecified Presentation: 08/24 17:16 Chief complaint: Patient states: Intermittent CP x 1 week that has been more continuous ss today. Pt believes it radiates towards her back and also states that she has spasms in her stomach. Also c/o R upper leg pain that began yesterday. No known injury. Coronavirus screen: Client denies travel out of the [place] in the last 14 days. Ebola Screen: Patient denies exposure to infectious person. Patient denies travel to an Ebola-affected area in the 21 days before illness onset. Initial Sepsis Screen: Does the patient meet any 2 criteria? No. Patient's initial sepsis screen is negative. Does the patient have a suspected source of infection? No. Patient's initial sepsis screen is negative. Risk Assessment: Do you want to hurt yourself or someone else? Patient reports no desire to harm self or others. Onset of symptoms was August 19, 2020. 17:16 Method Of Arrival: Ambulatory ss 17:16 Acuity: TERESA 3 ss Triage Assessment: 22:04 General: Appears in no apparent distress. comfortable. Respiratory:. Respiratory: zb Reports shortness of breath at rest Onset: The symptoms/episode began/occurred weeks , the patient has mild shortness of breath. 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 - Social history:: Smoking status: Patient reports the use of cigarette tobacco products, < 1/2 ppd. Screenin:00 Abuse screen: Denies threats or abuse. Denies injuries from another. Nutritional zb screening: No deficits noted. Tuberculosis screening: No symptoms or risk factors identified. Fall Risk None identified. Assessment: 17:26 Reassessment: EKG completed in triage. Given to Dr. Ramirez. ss 20:30 General: Appears in no apparent distress. comfortable, Behavior is calm, cooperative, zb appropriate for age. Pain: Complains of pain in right hip and epigastric area Pain currently is 8 out of 10 on a pain scale. Quality of pain is described as pressure. Neuro: Level of Consciousness is awake, alert, obeys commands, Oriented to person, place, time. Cardiovascular: Reports chest pain, nausea, shortness of breath, Heart tones S1 S2 present Capillary refill < 3 seconds in bilateral fingers Patient's skin is warm and dry. Rhythm is regular. Respiratory: Airway is patent Respiratory effort is even, unlabored, Respiratory pattern is regular, Breath sounds are clear bilaterally. GI: Abdomen is round non-distended. : No signs and/or symptoms were reported regarding the genitourinary system. EENT: Derm: Skin is intact, is healthy with good turgor, Skin is dry, Skin is normal, Skin temperature is warm. Musculoskeletal: Circulation, motion, and sensation intact. Capillary refill < 3 seconds, in bilateral fingers. Range of motion: intact in all extremities. 21:30 Reassessment: Patient appears in no apparent distress at this time. Patient and/or zb family updated on plan of care and expected duration. Pain level reassessed. Patient is alert, oriented x 3, equal unlabored respirations, skin warm/dry/pink. pt states medication helped pain decreased. 22:30 Reassessment: Patient appears in no apparent distress at this time. Patient and/or zb family updated on plan of care and expected duration. Pain level reassessed. Patient is alert, oriented x 3, equal unlabored respirations, skin warm/dry/pink. no c/o anything at this time. pt resting in bed lights dimmed. 23:00 Reassessment: Patient appears in no apparent distress at this time. Patient and/or zb family updated on plan of care and expected duration. Pain level reassessed. Patient is alert, oriented x 3, equal unlabored respirations, skin warm/dry/pink. pt states she is tired. no c/o at this time. denies pain or n/v. 08/25 00:00 Reassessment: Patient appears in no apparent distress at this time. Patient and/or zb family updated on plan of care and expected duration. Pain level reassessed. Patient is alert, oriented x 3, equal unlabored respirations, skin warm/dry/pink. no c/o of pain. pt states that she is ready to leave. notified ECP. advised pt ECP is waiting on last results. 00:15 Reassessment: pt states she wants to leave AMA. refusing troponin lab draw. notified zb ECP. ECP at bedside to talk to patient. Vital Signs: 08/24 17:16 BP 142 / 73; Pulse 97; Resp 17; Temp 97.9(TE); Pulse Ox 99% on R/A; Weight 88.45 kg; ss Height 5 ft. 3 in. (160.02 cm); Pain 8/10; 21:00 BP 119 / 67; Pulse 75; Resp 16; Pulse Ox 97% on R/A; zb 22:00 BP 132 / 63; Pulse 75; Resp 18; Pulse Ox 96% on R/A; zb 23:00 BP 123 / 55; Pulse 76; Resp 16; Pulse Ox 95% on R/A; zb 08/25 00:00 BP 113 / 48; Pulse 74; Resp 16; Pulse Ox 94% on R/A; zb 08/24 17:16 Body Mass Index 34.54 (88.45 kg, 160.02 cm) ED Course: 08/24 16:52 Patient arrived in ED. ag5 16:54 Ad Soni MD is Private Physician. ag5 17:18 Triage completed. ss 17:19 Arm band placed on right wrist. ss 20:35 Ciera Rosales, MEHREEN is Primary Nurse. zb 20:43 John Alejandra MD is Attending Physician. mh7 21:13 Inserted saline lock: 20 gauge in right antecubital area, using aseptic technique. ar5 Blood collected. 21:21 XRAY Chest (1 view) In Process Unspecified. EDMS 21:48 Hip Right 2 View XRAY In Process Unspecified. EDMS 22:03 Patient has correct armband on for positive identification. Bed in low position. Call zb light in reach. laboratory monitor on. Pulse ox on. NIBP on. Door closed. Noise minimized. 23:20 CT Chest For PE Angio In Process Unspecified. EDMS 23:20 CT Abd/Pelvis - IV Contrast Only In Process Unspecified. EDMS 08/25 00:41 Ray Newton MD is Referral Physician. [facility] 00:58 No provider procedures requiring assistance completed. IV discontinued, intact, zb bleeding controlled, No redness/swelling at site. Pressure dressing applied. Administered Medications: 08/24 21:31 Drug: Pepcid 20 mg Route: IVP; Site: right antecubital; zb 23:10 Follow up: Response: No adverse reaction zb 21:32 Drug: morphine 2 mg Route: IVP; Site: right antecubital; zb 21:45 Follow up: Response: No adverse reaction; Pain is decreased zb 21:32 Drug: Zofran (Ondansetron) 4 mg Route: IVP; Site: right antecubital; zb 23:11 Follow up: Response: No adverse reaction zb Outcome: 08/25 00:58 Discharged to home ambulatory. zb Condition: stable Discharge instructions given to patient, Instructed on discharge instructions, follow up and referral plans. medication usage, Demonstrated understanding of instructions, follow-up care, medications, Prescriptions given X 4. 00:58 Patient left the ED. zb Signatures: Dispatcher [employer] EDSC Barby Flores, MEHREEN RN Cynthia Dye Ajare John Wayne MD MD [facility] iCera Roasles RN RN zb
[2020-08-25 02:16] VITALS: TEMP 97.9
[2020-08-25 02:21] VITALS: BP 113/48; O2SAT 94
--- NOTE | 2020-08-25 09:04 | RAD REPORT ---
EXAM DESCRIPTION: RAD - Chest Single View - 08/24/2020 9:21 pm CLINICAL HISTORY: CHEST PAIN COMPARISON: None TECHNIQUE: AP portable chest image was obtained 08/24/2020 9:21 pm . FINDINGS: Lungs are clear. Heart and vasculature are normal. No measurable pleural effusion and no p neumothorax. No acute bony abnormality seen. No acute aortic findings suspected. IMPRESSION: No acute cardiopulmonary process.
--- NOTE | 2020-08-25 09:11 | RAD REPORT ---
EXAM DESCRIPTION: RAD - Hip Right 2 View - 08/24/2020 9:48 pm CLINICAL HISTORY: PAIN, right leg and hip, without provided history of fall COMPARISON: Abdomen Pelvis W Contrast dated 08/24/2020 FINDINGS: AP and frog-leg views of the right hip were obtained. There is no fracture or dislocation. No AVN or focal head abnormality. No acute or destructive bony p rocess seen. No significant degenerative changes identified. IMPRESSION: Negative right hip examination for acute or significant findings.
--- NOTE | 2020-08-25 12:36 | RAD REPORT ---
EXAM DESCRIPTION: CT - Chest For Pe Angio - 08/25/2020 6:51 am CLINICAL HISTORY: SOB and chest pain radiating to back. COMPARISON: None Available. TECHNIQUE: CTA of the chest obtained following IV administration of iodinated contrast. 3-D/MIP refo rmatted images available. CT of the abdomen and pelvis was then performed in the portal venous phase FINDINGS: Chest: Pulmonary arteries: Contrast bolus is adequate.No filling defects identified in the pulmonary arterie s to suggest pulmonary embolus. Thyroid: No abnormalities of the visualized thyroid. Great Vessels: Great vessels have normal anatomic configuration. Thoracic Aorta: Atherosclerotic calcification of the thoracic aorta. Heart: No cardiomegaly, significant pericardial effusion, or coronary artery atherosclerosis Lymph Nodes: No enlarged mediastinal lymph nodes identified. Esophagus: No abnormalities of the esophagus identified. Other: No additional findings. Lungs: Significant respiratory motion artifact. No definite confluent airspace consolidation. Evaluat ion for subtle groundglass opacities is suboptimal due to motion artifact. Pleura: No pleural effusion or pneumothorax. Trachea/Airways: No abnormalities of the visualized trachea or airways. Abdomen: Liver: The liver has normal size and decreased density. No intrahepatic mass or biliary dilatation. Gallbladder: Prior cholecystectomy. Spleen, Pancreas, and Adrenal Glands: The spleen, pancreas, and adrenal glands are unremarkable. Kidneys: The kidneys have normal size without evidence of solid mass or hydronephrosis. Small l eft renal cyst. Vasculature: Aortoiliac atherosclerosis. IVC is unremarkable. The portal vein is patent. The proxim al visceral and renal arteries are patent. Stomach: The stomach and duodenum have normal course. Other: No free intraperitoneal air. No free fluid or lymphadenopathy. Pelvis: Bladder: Urinary bladder is unremarkable. Bowel: No dilated loops of large or small bowel. Appendix: Normal appendix. Pelvis: Uterus is not enlarged. Bones: No destructive bone lesions identified. IMPRESSION: 1. No pulmonary embolus. 2. No acute abnormality identified in the abdomen or pelvis. 3. Hepatic steatosis. This exam was performed according to our departmental dose-optimization program, which includes autom ated exposure control, adjustment of the mA and/or kV according to patient size and/or use of iterati ve reconstruction technique. Electronically signed by: Levy Enriquez 08/24/2020 11:43 PM FOOD MIXER Due to temporary technical issues with the PACS/Fluency reporting system, reports are being signed by the in house radiologists without review as a courtesy to insure prompt reporting. The interpreting radiologist is fully responsible for the content of the report.
--- NOTE | 2020-08-25 12:41 | RAD REPORT ---
EXAM DESCRIPTION: CT - Abdomen Pelvis W Contrast - 08/25/2020 6:52 am CLINICAL HISTORY: SOB and chest pain radiating to back. COMPARISON: None Available. TECHNIQUE: CTA of the chest obtained following IV administration of iodinated contrast. 3-D/MIP refo rmatted images available. CT of the abdomen and pelvis was then performed in the portal venous phase FINDINGS: Chest: Pulmonary arteries: Contrast bolus is adequate.No filling defects identified in the pulmonary arterie s to suggest pulmonary embolus. Thyroid: No abnormalities of the visualized thyroid. Great Vessels: Great vessels have normal anatomic configuration. Thoracic Aorta: Atherosclerotic calcification of the thoracic aorta. Heart: No cardiomegaly, significant pericardial effusion, or coronary artery atherosclerosis Lymph Nodes: No enlarged mediastinal lymph nodes identified. Esophagus: No abnormalities of the esophagus identified. Other: No additional findings. Lungs: Significant respiratory motion artifact. No definite confluent airspace consolidation. Evaluat ion for subtle groundglass opacities is suboptimal due to motion artifact. Pleura: No pleural effusion or pneumothorax. Trachea/Airways: No abnormalities of the visualized trachea or airways. Abdomen: Liver: The liver has normal size and decreased density. No intrahepatic mass or biliary dilatation. Gallbladder: Prior cholecystectomy. Spleen, Pancreas, and Adrenal Glands: The spleen, pancreas, and adrenal glands are unremarkable. Kidneys: The kidneys have normal size without evidence of solid mass or hydronephrosis. Small l eft renal cyst. Vasculature: Aortoiliac atherosclerosis. IVC is unremarkable. The portal vein is patent. The proxim al visceral and renal arteries are patent. Stomach: The stomach and duodenum have normal course. Other: No free intraperitoneal air. No free fluid or lymphadenopathy. Pelvis: Bladder: Urinary bladder is unremarkable. Bowel: No dilated loops of large or small bowel. Appendix: Normal appendix. Pelvis: Uterus is not enlarged. Bones: No destructive bone lesions identified. IMPRESSION: 1. No pulmonary embolus. 2. No acute abnormality identified in the abdomen or pelvis. 3. Hepatic steatosis. This exam was performed according to our departmental dose-optimization program, which includes autom ated exposure control, adjustment of the mA and/or kV according to patient size and/or use of iterati ve reconstruction technique. Electronically signed by: Levy Enriquez 08/24/2020 11:43 PM SUPERSONIC ENGINEER Due to temporary technical issues with the PACS/Fluency reporting system, reports are being signed by the in house radiologists without review as a courtesy to insure prompt reporting. The interpreting radiologist is fully responsible for the content of the report.
== END 2020-08-25 00:58 | disposition left against medical advice (07) ==
LOC: ER 16:51
DX: R07.9 Chest pain, unspecified (principal); R10.10 Upper abdominal pain, unspecified; R19.7 Diarrhea, unspecified; F17.210 Nicotine dependence, cigarettes, uncomplicated; E11.9 Type 2 diabetes mellitus without complications; Z53.20 Procedure and treatment not carried out because of patient's decision for unspecified reasons
CPT/HCPCS: 36415; 71045; 71275; 74177; 80048; 80076; 80307; 81003; 82550; 83690; 83735; 83880; 84484; 85025; 85610; 93005; 96374; 96375; 99284; J2270; J2405; Q9967

== ENCOUNTER 2020-12-05 10:51 | Emergency (ER) | payer SELFPAY ==
[2020-12-05] MEDS ORDERED: CLINDAMYCIN 600MG/D5W 600 MG/50 ML BAG IV ONE (12:34)
[2020-12-05] MEDS ORDERED: dexAMETHasone 4 MG/ML VIAL ONE (12:34)
[2020-12-05 12:53] LABS: Absolute Lymphocytes (CBC) 4.5 K/uL (0.7-4.9); Basophils % 0.4 % (0-1.3); Hematocrit 44.9 % (36.0-45.0); Lymphocytes % 28.2 % (15.3-44.8); MPV 8.9 fL (7.6-11.3); RBC Red Blood Cell Count 4.77 M/uL (3.86-4.86)
[2020-12-05 13:04] LABS: BUN Blood Urea Nitrogen 13 mg/dL (7-18); Bicarbonate 26 mmol/L (21-32); Glucose Level 158 mg/dL (74-106); Potassium 3.6 mmol/L (3.5-5.1); Sodium Level 142 mmol/L (136-145)
--- NOTE | 2020-12-05 13:50 | RAD REPORT ---
EXAM DESCRIPTION: CT - Soft Tissue Neck W/Contr - 12/05/2020 1:24 pm CLINICAL HISTORY: left neck lymphadenitis COMPARISON: <Comparisons> TECHNIQUE: During dynamic enhancement using 100 milliliters nonionic IV contrast, axial 5 millimeter thick images of the neck were obtained. All CT scans are performed using dose optimization technique as appropriate and may include automated exposure control or mA/KV adjustment according to patient size. FINDINGS: Intracranial portion the exam is unremarkable. No globe or orbital content abnormality see n. Visualized paranasal sinuses are clear. The mastoid air cells are clear. No nasopharyngeal mucosal mass identified. Parapharyngeal fat is normal. Tonsillar tissue is asymmetr ically prominent on the left. No peritonsillar abscess identified. An approximately 18 millimeter area of enhancing, asymmetric prominent tissue is seen in the left ruddy e base of the tongue extending to the vallecula. A 17 millimeter enhancing lymph node is present in t he left-side of the neck just posterior and inferior to the angle of the mandible. An additional 17 x 8 mm enhancing lymph node is present anterior to the carotid sheath at the hyoid bone level. A few a dditional small sub centimeter left-sided cervical lymph nodes are present. The parotid, submandibular and thyroid gland tissue show no suspicious findings. There is a small 6 m m cyst or nodule in the left lobe of the thyroid gland. No vascular abnormality. IMPRESSION: Patient has fullness of the left tonsillar tissue without discrete mass or abscess ident ified. An 18 millimeter area of asymmetric enhancing tissue is seen left base of the tongue extending to the vallecula. Left neck enhancing lymph nodes are present as detailed. Findings are concerning for possible head and neck cancer. Follow up ENT consultation may be needed f or direct visualization.
[2020-12-05] MEDS ORDERED: HYDROCODONE/APAP 5/325 MG TAB ONE (13:54)
--- NOTE | 2020-12-05 14:06 | ER ---
Nurse's Notes [facility] Name: Gwendolyn Castellanos Age: 50 yrs Sex: Female : 1970 Arrival Date: 12/05/2020 Time: 10:51 Bed 6 Private MD: Diagnosis: Cervical Lymphadenopathy - Lymphadenitis vs head and neck cancer Presentation: 12/05 11:30 Chief complaint: Patient states: swelling to L side of neck that began 3 days ago. Was ss seen at [place] and given Augmentin which is not helping. Coronavirus screen: Client denies travel out of the [place] in the last 14 days. Ebola Screen: Patient denies exposure to infectious person. Patient denies travel to an Ebola-affected area in the 21 days before illness onset. Initial Sepsis Screen: Does the patient meet any 2 criteria? No. Patient's initial sepsis screen is negative. Does the patient have a suspected source of infection? No. Patient's initial sepsis screen is negative. Risk Assessment: Do you want to hurt yourself or someone else? Patient reports no desire to harm self or others. Onset of symptoms was December 02, 2020. 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 - Social history:: Smoking status: Patient reports the use of cigarette tobacco products, denies chronic smoking, but will smoke occasionally. - Family history:: not pertinent. - Hospitalizations: : No recent hospitalization is reported. Screenin:49 Abuse screen: Denies threats or abuse. Denies injuries from another. Nutritional ld1 screening: No deficits noted. Tuberculosis screening: No symptoms or risk factors identified. Fall Risk IV access (20 points). Assessment: 12:44 General: Appears in no apparent distress. comfortable, Behavior is calm, cooperative, ld1 appropriate for age. Pain: Complains of pain in neck Pain currently is 8 out of 10 on a pain scale. Quality of pain is described as burning, throbbing, Pain began 1 day ago. Is continuous. Neuro: Level of Consciousness is awake, alert, obeys commands, Oriented to person, place, time, situation. Cardiovascular: Capillary refill < 3 seconds Patient's skin is warm and dry. Rhythm is regular. Respiratory: Airway is patent Respiratory effort is even, unlabored, Respiratory pattern is regular, symmetrical. GI: Abdomen is round non-distended. : No deficits noted. EENT: Throat patient c/o throat pain x 1 day. Derm: No deficits noted. Musculoskeletal: No deficits noted. Vital Signs: 11:31 BP 142 / 86; Pulse 86; Resp 16; Temp 98.0(TE); Pulse Ox 98% on R/A; Weight 86.18 kg; ss Height 5 ft. 3 in. (160.02 cm); Pain 8/10; 12:49 BP 153 / 93; Pulse 94; Resp 18; Temp 99.1(O); Pulse Ox 97% on R/A; Height 5 ft. 3 in. ld1 (160.02 cm); Pain 8/10; 12:49 Body Mass Index 33.66 (86.18 kg, 160.02 cm) ld1 ED Course: 10:51 Patient arrived in ED. as 11:30 Triage completed. ss 11:31 Arm band placed on right wrist. ss 12:02 Nelson Ramirez MD is Attending Physician. rn 12:12 Sri Hernandez RN is Primary Nurse. ld1 12:49 Patient has correct armband on for positive identification. Placed in gown. Bed in low ld1 position. Call light in reach. Side rails up X 1. 12:49 No provider procedures requiring assistance completed. Inserted saline lock: 22 gauge ld1 in right antecubital area, using aseptic technique. Blood collected. 13:24 CT Soft Tissue Neck W/contr In Process Unspecified. EDMS 14:04 Gwendolyn Johansen MD is Referral Physician. rn 14:16 IV discontinued, intact, bleeding controlled. ld1 Administered Medications: 12:37 Drug: Decadron - Dexamethasone 10 mg Route: IVP; Site: right antecubital; ld1 13:15 Follow up: Response: No adverse reaction ld1 12:37 Drug: Clindamycin 600 mg Route: IVPB; Infused Over: 30 mins; Site: right antecubital; ld1 13:15 Follow up: Response: No adverse reaction ld1 13:37 Drug: [place] (HYDROcodone-acetaminophen) 5 mg-325 mg 1 tabs Route: PO; ld1 14:15 Follow up: Response: No adverse reaction ld1 Outcome: 14:05 Discharge ordered by . rn 14:16 Discharged to home ambulatory. ld1 14:16 Condition: stable 14:16 Discharge instructions given to patient, Instructed on discharge instructions, follow up and referral plans. medication usage, Demonstrated understanding of instructions, follow-up care, medications. 14:17 Patient left the ED. ld1 Signatures: Dispatcher [employer] EDMS Justyna Mendez Roman, MD MD rn Smirch, Shelby, RN RN Sri Hernandez RN RN ld1
--- NOTE | 2020-12-05 14:06 | EDPHYS ---
Physician Documentation [facility] Name: Gwendolyn Castellanos Age: 50 yrs Sex: Female : 1970 Arrival Date: 12/05/2020 Time: 10:51 Bed 6 Private MD: ED Physician Nelson Ramirez HPI: 12/05 12:21 This 50 yrs old Female presents to ER via Ambulatory with complaints of Neck rn Swelling. 12:21 The patient or guardian complains of pain, swelling. The symptoms are located on the rn left neck. Onset: The symptoms/episode began/occurred 3 day(s) ago. Associated signs and symptoms: Pertinent negatives: fever, headache, vomiting, weakness. The pain does not radiate. Modifying factors: The symptoms are alleviated by nothing. the symptoms are aggravated by nothing. Severity of symptoms: At their worst the symptoms were moderate, in the emergency department the symptoms are unchanged. The patient has not experienced similar symptoms in the past. The patient has been recently seen by a physician:. Reports just seen at [place] a few days ago for this, given augmentin, feels like getting worse. No fever. Reports pain to left neck, no difficulty breathing or swallowing but does have some pain with swallowing. NO trauma. No hx of cancer. No other areas of swelling.. 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 - Social history:: Smoking status: Patient reports the use of cigarette tobacco products, denies chronic smoking, but will smoke occasionally. - Family history:: not pertinent. - Hospitalizations: : No recent hospitalization is reported. ROS: 12:21 Constitutional: Negative for fever, chills, and weight loss, Eyes: Negative for injury, rn pain, redness, and discharge, Neck: + left neck swelling and pain Cardiovascular: Negative for chest pain, palpitations, and edema, Respiratory: Negative for shortness of breath, cough, wheezing, and pleuritic chest pain, Abdomen/GI: Negative for abdominal pain, nausea, vomiting, diarrhea, and constipation, MS/Extremity: Negative for injury and deformity, Skin: Negative for injury, rash, and discoloration, Neuro: Negative for headache, weakness, numbness, tingling, and seizure. Exam: 12:21 Constitutional: This is a well developed, well nourished patient who is awake, alert, rn and in no acute distress. Head/Face: Normocephalic, atraumatic. ENT: NO stridor, MMM Neck: + tender cervical LAD, no crepitus Cardiovascular: Regular rate and rhythm. No pulse deficits. Respiratory: No increased work of breathing, no retractions or nasal flaring. Skin: Warm, dry with normal turgor. Normal color with no rashes, no lesions, and no evidence of cellulitis. MS/ Extremity: Pulses equal, no cyanosis. Neurovascular intact. Full, normal range of motion. Equal circumference. Neuro: Awake and alert, GCS 15, oriented to person, place, time, and situation. Cranial nerves II-XII grossly intact. Motor strength 5/5 in all extremities. Sensory grossly intact. Cerebellar exam normal. Normal gait. Vital Signs: 11:31 BP 142 / 86; Pulse 86; Resp 16; Temp 98.0(TE); Pulse Ox 98% on R/A; Weight 86.18 kg; ss Height 5 ft. 3 in. (160.02 cm); Pain 8/10; 12:49 BP 153 / 93; Pulse 94; Resp 18; Temp 99.1(O); Pulse Ox 97% on R/A; Height 5 ft. 3 in. ld1 (160.02 cm); Pain 8/10; 12:49 Body Mass Index 33.66 (86.18 kg, 160.02 cm) ld1 MDM: 12:02 Patient medically screened. rn 14:02 Differential diagnosis: lymphadenitis, head and neck cancer, lymphadenopathy. Data rn reviewed: vital signs, nurses notes, lab test result(s), radiologic studies, CT scan, and as a result, I will discharge patient. Counseling: I had a detailed discussion with the patient and/or guardian regarding: the historical points, exam findings, and any diagnostic results supporting the discharge/admit diagnosis, lab results, radiology results, the need for outpatient follow up, to return to the emergency department if symptoms worsen or persist or if there are any questions or concerns that arise at home. Response to treatment: the patient's symptoms have mildly improved after treatment, and as a result, I will discharge patient. Special discussion: I discussed with the patient/guardian in detail that at this point there is no indication for admission to the hospital. It is understood, however, that if the symptoms persist or worsen the patient needs to return immediately for re-evaluation. Based on the history and exam findings, there is no indication for further emergent testing or inpatient evaluation. I discussed with the patient/guardian the need to see the ENT specialist for further evaluation of the symptoms. ED course: Pt feels better, ct shows possible head and neck cancer with asymmetry, has seen Dr. Johansen, will f/u for direct visualization. Pt denies previous symptoms of dysphagia and reports this popped up really quick, and low grade fever favors possible infectious etiology. no abscess. Will dc home with abx and steroids and will f/u with Dr. Eleno ESTES. . 14:06 ED course: Results printed out and handed to patient, explained importance of ENT f/u.. rn 12/05 12:12 Order name: CBC with Diff; Complete Time: 13:22 rn 12/05 12:12 Order name: Basic Metabolic Panel; Complete Time: 13:22 rn 12/05 12:12 Order name: CT Soft Tissue Neck W/contr; Complete Time: 13:52 rn 12/05 13:59 Order name: CREATININE WHOLE BLOOD EDNJ 12/05 12:12 Order name: IV Start; Complete Time: 12:38 rn Administered Medications: 12:37 Drug: Decadron - Dexamethasone 10 mg Route: IVP; Site: right antecubital; ld1 13:15 Follow up: Response: No adverse reaction ld1 12:37 Drug: Clindamycin 600 mg Route: IVPB; Infused Over: 30 mins; Site: right antecubital; ld1 13:15 Follow up: Response: No adverse reaction ld1 13:37 Drug: [place] (HYDROcodone-acetaminophen) 5 mg-325 mg 1 tabs Route: PO; ld1 14:15 Follow up: Response: No adverse reaction ld1 Disposition: 12/05/20 14:05 Discharged to Home. Impression: Cervical Lymphadenopathy - Lymphadenitis vs head and neck cancer. - Condition is Stable. - Discharge Instructions: Throat Cancer, Lymphadenopathy. - Prescriptions for Clindamycin HCl 300 mg Oral Capsule - take 1 capsule by ORAL route every 6 hours for 10 days; 40 capsule. Medrol (Shaun) 4 mg Oral Tablets, Dose Pack - take 1 tablet by ORAL route as directed - follow package instructions; 1 packet. - Medication Reconciliation Form, Thank You Letter, Antibiotic Education, Prescription Opioid Use, Work release form, Family Work Release form. - Follow up: Gwendolyn Johansen MD; When: 2 - 3 days; Reason: Recheck today's complaints, Re-evaluation by your physician. - Problem is new. - Symptoms have improved. Signatures: Dispatcher [employer] EDMS Nelson Ramirez MD MD rn Smirch, Shelby, RN RN ss Sri Hernandez RN RN ld1 Corrections: (The following items were deleted from the chart) 14:17 14:05 12/05/2020 14:05 Discharged to Home. Impression: Cervical Lymphadenopathy - ld1 Lymphadenitis vs head and neck cancer. Condition is Stable. Forms are Medication Reconciliation Form, Thank You Letter, Antibiotic Education, Prescription Opioid Use. Follow up: Gwendolyn Johansen; When: 2 - 3 days; Reason: Recheck today's complaints, Re-evaluation by your physician. Problem is new. Symptoms have improved. rn
[2020-12-05 14:35] VITALS: BP 153/93; TEMP 99.1; O2SAT 97
== END 2020-12-05 14:17 | disposition home or self-care (01) ==
LOC: ER 10:51
DX: R59.0 Localized enlarged lymph nodes (principal); E11.9 Type 2 diabetes mellitus without complications; F17.210 Nicotine dependence, cigarettes, uncomplicated
CPT/HCPCS: 36415; 70491; 80048; 82565; 85025; 96374; 96375; 99284; J1100; Q9967

== ENCOUNTER 2020-12-28 07:06 | Day surgery (SDC) | payer SELFPAY ==
--- NOTE | 2020-12-25 17:40 | EKG ---
Test Date: 2020-12-25 Test Time: 10:14:30 [employer] Resource Teacher: ROSALIE MEASUREMENT RESULTS: Intervals: Rate: 64 TN: 164 QRSD: 86 QT: 426 QTc: 439 [place]: P: 53 TN: 164 QRS: 1 T: 11 INTERPRETIVE STATEMENTS: Normal sinus rhythm Possible Inferior infarct, age undetermined Abnormal ECG Compared to ECG 08/24/2020 17:23:36 No significant changes Electronically Signed On 12-25-20 17:39:57 CDT by Ray Newton
[2020-12-28 07:23] LABS: Specific Gravity >= 1.030 (1.005-1.030)
[2020-12-28] MEDS ORDERED: Ringers Lactate 1,000 ML IV ONE (07:38)
[2020-12-28] MEDS ORDERED: propofoL 200 MG/20 ML VIAL IV ONE (07:54)
[2020-12-28] MEDS ORDERED: ROCURONIUM 50 MG/5 ML VIAL IV ONE (07:54)
[2020-12-28] MEDS ORDERED: LIDOCAINE 2% MPF 5 ML VIAL ONE (07:54)
[2020-12-28] MEDS ORDERED: FENTANYL CITR 100 MCG/2 ML ONE ×2 (07:54→09:52)
[2020-12-28] MEDS ORDERED: MIDAZOLAM HCL 2 MG/2 ML INJ ONE (07:57)
[2020-12-28] MEDS ORDERED: SUGAMMADEX SODIUM 200 MG/2 ML VIAL IV ONE (08:03)
[2020-12-28] MEDS ORDERED: INSULIN -REGULAR HUMAN 50 UNIT/0.5 ML ML IV ONE (08:10)
[2020-12-28] MEDS ORDERED: INSULIN -REGULAR HUMAN 50 UNIT/0.5 ML ML ONE (08:35)
[2020-12-28] MEDS ORDERED: LIDOCAINE 1% W/EPI 1:100,000 MDV 20 ML VIAL ONE (08:42)
[2020-12-28] MEDS ORDERED: EPINEPHRINE/PF 1 MG/ML AMP ONE (08:42)
[2020-12-28] MEDS ORDERED: ONDANSETRON 4 MG/2 ML VIAL ONE (09:35)
[2020-12-28] MEDS ORDERED: ALBUTEROL INHALER 60 PUFF/8 GM IH ONE (09:41)
[2020-12-28] MEDS ORDERED: dexAMETHasone 4 MG/ML VIAL ONE (09:45)
[2020-12-28] MEDS ORDERED: PROMETHAZINE INJ 25 MG/ML AMP ONE (09:52)
[2020-12-28 10:42] VITALS: TEMP 97.6; O2SAT 97
--- NOTE | 2020-12-28 10:48 | P.BOP ---
Preoperative diagnosis: VC neoplasm uncertain behavior Postoperative diagnosis: same Primary procedure: DL with telescope and excision of R TVF lesion Regulator Tester: NONE,NONE Estimated blood loss: <5ml Specimen: R TVF lesion Findings: round, red, smooth mass on phonating edge of R TVF Anesthesia: General Complications: None Implants: None Fluids & blood products: see anesthesia record Transferred to: Recovery Room Condition: Good
[2020-12-28] MEDS ORDERED: ACETAMINOPHEN 325 MG TABLET ONE (11:51)
--- NOTE | 2020-12-28 12:45 | OP ---
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 Procedure: Direct laryngoscopy with telescope and excision of vocal fold lesion. Indication For Procedure: Ms. Castellanos is a 50-year-old, who presented with concern for a neck mass. During her evaluation, she was noted to have significant dysphonia and due to a history of tobacco use, a flexible laryngoscopy was performed demonstrating a round, red vocal fold lesion. The risks, benefits, and alternatives to the procedure were discussed with the patient, who agreed to proceed. Procedure In Detail: The patient was placed under general anesthesia via oral endotracheal tube. A shoulder roll was placed. The neck was extended and the head was supported. A rubber tooth guard wa s placed over the upper dentition. The [facility] laryngoscope was fitted with a 15-degree rigid t elescope and used to perform a direct laryngoscopy. The palate, uvula, posterior pharyngeal wall, to nsils, base of tongue, vallecula, epiglottis, hypopharynx, piriform sinuses all appeared within carla l limits. The true vocal fold demonstrated mild hypervascularity, which was worse on the right side with moderate polypoid changes worse on the left. The right vocal fold had a moderate-sized round, e xophytic smooth red lesion. Photographic documentation was obtained. Secretions surrounding the les ion were suctioned. The lesion was grasped at its base using a laryngeal alligator forceps. The up- biting laryngeal scissors were used to incise the mucosa at the base of the lesion removing it comple tely from the underlying tissues. The site was treated with direct pressure using an epinephrine-soa ked cotton pledget. After several minutes, the pledget was removed and the area appeared to be hemos tatic. A small additional edge of mucosal tissue was advanced over the defect to aid in healing. Pr ior to removal of the lesion, a laryngeal injection needle was used to inject 0.3 mL of 1% lidocaine with epinephrine into the right vocal fold in order to aid in hemostasis and to elevate the lesion aw ay from the underlying vocal cord tissues. At the conclusion of the procedure, the patient was retur denisse to care of Anesthesia for awakening and extubation in the operating room, which proceeded without difficulty. Complications: None. Disposition: The patient will be discharged home later today with voice rest and follow up with Dr. Johansen in 10 days for re-evaluation. CELSO Voice ID: [id number] Report ID: [id number]
[2020-12-28 12:57] VITALS: BP 115/61
== END 2020-12-28 12:15 | disposition home or self-care (01) ==
LOC: OR 07:06
PROVIDERS: ATTEND Otolaryngology
PROC: 0CBT8ZZ Excision of Right Vocal Cord, Via Natural or Artificial Opening Endoscopic (ICD-10-PCS; principal; 2020-12-28 08:45)
DX: J38.1 Polyp of vocal cord and larynx (principal); R49.0 Dysphonia; Z72.0 Tobacco use; Z20.822 Contact with and (suspected) exposure to COVID-19
CPT/HCPCS: 81025; 82947; 88305; 93005; J0171; J1100; J2250; J2405; J2550; J2704; J3010; J7120; U0002

== ENCOUNTER 2022-06-16 01:16 | Emergency (ER) | payer SELFPAY ==
--- OUTSIDE RECORDS SUMMARY | 2022-06-16 01:20 | XMS REPORT | Continuity of Care Document ---
:1970 Author Organization [facility] t Address [address] [place] [address] Dr. Hubbard [address] [place] [address] Care Team Providers Name Role Phone PCP, PATIENT DOES NOT HAVE A Primary Care Physician UnavailTOÑITO Gordillo Attending Clinician Unavailable Toñito Contreras MD Attending Clinician MOHIT GONZALES Attending Clinician Unavailable Mohit Larsen Attending Clinician FLORENTINO MALONEY Admitting Clinician Unavailable DONNA GUZMAN Admitting Clinician Unavailable Payers Payer Name Policy Type Policy Number Effective Date Expiration Date S walter [facility] [id number] 2021 HEALTHCARE 00:00:00 Problems Condition Condition Condition Status Onset Resolution Last Treating Co mments Source Name Details Category Date Date Treatment Clinician Date No known No known Disease Unive rs active active ity of problems problems [facility] Allergies, Adverse Reactions, Alerts Allergy Allergy Status Severity Reaction(s) Onset Inactive Treating Comm ents Source Name Type Date Date Clinician NO KNOWN Drug Active Univers ALLERGIE Class ity of [facility] Social History Social Habit Start Date Stop Date Quantity Comments Source Exposure to 2022-05-30 2022-06-09 Not sure [facility] SARS-CoV-2 (event) 00:00:00 17:40:00 Medica l Branch Sex Assigned At [birth year] [facility] 00:00:00 00:00:00 Medical Branch Smoking Status Start Date Stop Date Source Tobacco smoking consumption Univ [facility] Medical unknown Branch Medications Ordered Filled Start Stop Current Ordering Indication Dosage Frequency Signature Comments Components Source Medication Medication Date Date Medication? Clinician (SIG) Name Name ibuprofen 2021-08 Yes [id number] 800mg Take 1 Univers 800 mg 0-24 tablet by ity of tablet 00:00: mouth [place] 00 every 6 Medical (six) Branch hours as needed for Pain (scale 4-6). ibuprofen 2021- No 600mg 600 mg, Uni vers (IBU) 11-16 Oral, ity of tablet 600 23:00: 22:00 ONCE, 1 [place] mg 00 :00 dose, On Medical 11/16/21 Branch at 1800, MEERA cephALEXin No 500mg 500 mg, Un helene (KEFLEX) 11-16 Oral, ity of capsule 500 21:45: 22:00 [place] :[place] dose, On Medical 11/16/21 Branch at 1700, MEERA
Re ason for Anti-Infec tive: Documented Infection< br>Documen partha Infection Site: Skin / Soft Tissue
Duration of Therapy: Other (see Comments) doxycycline No 100mg 100 mg, U nivers hyclate 11-16 Oral, ity of (Vibramycin 21:45: 22:00 [place] capsule 00 :00 dose, On Medica l 100 mg 11/16/21 Branch at 1700, MEERA
Re ason for Anti-Infec tive: Documented Infection< br>Documen partha Infection Site: Skin / Soft Tissue
Duration of Therapy: Other (see Comments) doxycycline 2021- Yes [id number] 100mg Take 1 Univers hyclate 100 4-02 capsule by it y of mg capsule [place]:00[place] (two) Medical times Branch daily. ibuprofen 2021-0 Yes [id number] 600mg Take 1 Univers 600 mg 4-02 tablet by ity of tablet 00:00: mouth [place] 00 every 8 Medical (eight) Branch hours as needed for Pain (scale 4-6). doxycycline 2021- Yes [id number] 100mg Take 1 Univers hyclate 100 4-02 capsule by it y of mg capsule [place]:00[place] (two) Medical times Branch daily. ibuprofen Yes [id number] 600mg Take 1 Univers 600 mg 4-02 tablet by ity of tablet 00:00: mouth [place] 00 every 8 Medical (eight) Branch hours as needed for Pain (scale 4-6). cephALEXin 2021- No [id number] 500mg Take 1 Univers (KEFLEX) 11-16 capsule by ity of 500 mg 00:00: 04:59 mouth 4 [place] capsule 00 :00 (four) Medical times Branch daily for 10 days. Vital Signs Vital Name Observation Time Observation Value Comments Source Systolic blood 2022-06-09 22:43:00 143 mm[Hg] [facility] Diastolic blood 2022-06-09 22:43:00 80 mm[facility]Hg[facility] rate 2022-06-09 22:43:00 91 /min [facility] Body temperature 2022-06-09 22:43:00 36.67 Laurie [facility] Respiratory rate 2022-06-09 22:43:00 18 /min [facility] Body weight 2022-06-09 22:43:00 86.183 kg [facility] Oxygen saturation in 2022-06-09 22:43:00 97 /min University of Arterial blood by [facility] Pulse oximetry Branch Systolic blood 2021-11-16 21:27:00 165 mm[Hg] [facility]iver [facility] Diastolic blood 2021-11-16 21:27:00 94 mm[Hg] [facility] rate 2021-11-16 21:27:00 88 /[facility] 2021-11-16 21:27:00 36.67 Laurie [facility] Respiratory rate 2021-11-16 21:27:00 17 /min [facility] Body weight 2021-11-16 21:27:00 86.183 kg [facility] Oxygen saturation in 2021-11-16 21:27:00 97 /min University of Arterial blood by [facility] Pulse oximetry Branch Procedures Procedure Date / Time Performing Clinician Source Performed XR CHEST 2 VW 2022-06-09 23:35:43 Florentino Maloney [facility] LIPASE 2022-06-09 23:22:00 Florentino Maloney [facility] TROPONIN I 2022-06-09 23:22:00 Florentino Maloney [facility] COMP. METABOLIC PANEL 2022-06-09 23:22:00 Florentino Maloney [facility] ([id number]) [facility] CBC WITH DIFF 2022-06-09 23:22:00 Florentino Maloney [facility] PROTHROMBIN TIME / INR 2022-06-09 23:22:00 Florentino Maloney [facility] D-DIMER 2022-06-09 23:22:00 Florentino Maloney [facility] ACTIVATED PARTIAL 2022-06-09 23:22:00 Florentino Maloney [facility] N-TERMINAL PRO-BNP 2022-06-09 23:22:00 Florentino Maloney [facility] CONSENT/REFUSAL FOR 2022-06-09 22:39:17 Doctor Unassigned, No [facility] [place] [facility] Name [facility] XR HAND 3+ VW RIGHT 2021-11-16 23:01:00 Rachel Lopez [facility] CONSENT/REFUSAL FOR 2021-11-16 21:27:37 Doctor Unassigned, No [facility] [place] [facility] Name [facility] Encounters Start End Encounter Admission Attending Care Care Encounter Source Date/Time Date/Time Type Type Clinicians Facility Department ID 2022-06-09 2022-06-09 Emergency X BEN, [facility] ERT [id number] Univers 17:44:00 20:26:00 TOÑITO wright [facility] 2022-06-09 2022-06-09 Emergency Ben, [place] [id number] Univers 17:44:00 20:26:00 Toñito JEANIE [id number] ity [id number] [facility] [id number] [place] [id number] Branch 2021-11-16 2021-11-16 Emergency X CHRISTIAN, [facility] ERT [id number] Univers 16:32:00 19:24:00 MOHIT wright [facility] 2021-11-16 2021-11-16 Emergency Vincent, [place] [id number] Univers 16:32:00 19:24:00 [facility] [id number] it y of [id number] Walter hodges [id number] [facility] 014 Branch Results This patient has no known results.
[2022-06-16 01:44] LABS: Urine Blood Trace-lysed (Negative); Urine Glucose 3+ (Negative); Urine Protein Negative (Negative); Urine Specific Gravity 1.015 (1.005-1.030)
[2022-06-16 02:11] LABS: Absolute Lymphocytes (CBC) 5.4 K/uL (0.7-4.9); Hematocrit 42.9 % (36.0-45.0); Lymphocytes % 44.2 % (15.3-44.8); MCV 91.5 fL (80-100); RBC Red Blood Cell Count 4.69 M/uL (3.86-4.86)
[2022-06-16 02:49] LABS: Albumin 3.1 g/dL (3.4-5.0); Bilirubin Total 0.4 mg/dL (0.2-1.0); Potassium 3.9 mmol/L (3.5-5.1); Protein, Total 7.1 g/dL (6.4-8.2); Troponin High Sensitivity 4.8 pg/mL (<58.9)
[2022-06-16] MEDS ORDERED: ONDANSETRON 4 MG/2 ML VIAL ONE (03:24)
[2022-06-16] MEDS ORDERED: FENTANYL CITR 100 MCG/2 ML ONE (03:24)
[2022-06-16] MEDS ORDERED: NA CHLORIDE 0.9% 1,000 ML ONE (03:24)
[2022-06-16] MEDS ORDERED: CIPROFLOXACIN 400mg IV 0 MG/0 ML BAG IV ONE (04:04)
[2022-06-16] MEDS ORDERED: METRONIDAZOLE 500mg IVPB 500 MG/100 ML BAG IV ONE (04:04)
[2022-06-16] MEDS ORDERED: CIPROFLOXACIN HCL 500 MG TAB ONE (04:29)
--- NOTE | 2022-06-16 04:56 | EDPHYS ---
Physician Documentation [facility] Name: Gwendolyn Castellanos Age: 51 yrs Sex: Female : 1970 Arrival Date: 06/16/2022 Time: 01:21 Bed 5 Private MD: ED Physician Harjit Garcia HPI: 06/16 04:00 This 51 yrs old Female presents to ER via Ambulatory with complaints of javi Breathing Difficulty, Abdominal Pain. 04:00 The patient has shortness of breath at rest, with light activity. Onset: The javi symptoms/episode began/occurred 2 day(s) ago. Duration: The symptoms are continuous, and are steadily getting worse. The patient's shortness of breath has no apparent modifying factors. Associated signs and symptoms: The patient has no apparent associated signs or symptoms. Severity of symptoms: At their worst the symptoms were mild in the emergency department the symptoms are unchanged. The patient has not experienced similar symptoms in the past. 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 - Social history:: Smoking status: Smoking status: Patient reports the use of cigarette tobacco products, smokes one-half pack cigarettes per day. ROS: 04:01 Constitutional: Negative for fever, chills, and weight loss, Eyes: Negative for injury, javi pain, redness, and discharge, ENT: Negative for injury, pain, and discharge, Neck: Negative for injury, pain, and swelling, Cardiovascular: Negative for chest pain, palpitations, and edema, Respiratory: Negative for shortness of breath, cough, wheezing, and pleuritic chest pain, Back: Negative for injury and pain, : Negative for injury, bleeding, discharge, and swelling, MS/Extremity: Negative for injury and deformity, Skin: Negative for injury, rash, and discoloration, Neuro: Negative for headache, weakness, numbness, tingling, and seizure, Psych: Negative for depression, anxiety, suicide ideation, homicidal ideation, and hallucinations, Allergy/Immunology: Negative for hives, rash, and allergies, Endocrine: Negative for neck swelling, polydipsia, polyuria, polyphagia, and marked weight changes, Hematologic/Lymphatic: Negative for swollen nodes, abnormal bleeding, and unusual bruising. 04:01 Abdomen/GI: Positive for abdominal pain, of the left upper quadrant. Exam: 04:01 Constitutional: This is a well developed, well nourished patient who is awake, alert, javi and in no acute distress. Head/Face: Normocephalic, atraumatic. Eyes: Pupils equal round and reactive to light, extra-ocular motions intact. Lids and lashes normal. Conjunctiva and sclera are non-icteric and not injected. Cornea within normal limits. Periorbital areas with no swelling, redness, or edema. ENT: Nares patent. No nasal discharge, no septal abnormalities noted. Tympanic membranes are normal and external auditory canals are clear. Oropharynx with no redness, swelling, or masses, exudates, or evidence of obstruction, uvula midline. Mucous membranes moist. Neck: Trachea midline, no thyromegaly or masses palpated, and no cervical lymphadenopathy. Supple, full range of motion without nuchal rigidity, or vertebral point tenderness. No Meningismus. Chest/axilla: Normal chest wall appearance and motion. Nontender with no deformity. No lesions are appreciated. Cardiovascular: Regular rate and rhythm with a normal S1 and S2. No gallops, murmurs, or rubs. Normal PMI, no JVD. No pulse deficits. Respiratory: Lungs have equal breath sounds bilaterally, clear to auscultation and percussion. No rales, rhonchi or wheezes noted. No increased work of breathing, no retractions or nasal flaring. Back: No spinal tenderness. No costovertebral tenderness. Full range of motion. Skin: Warm, dry with normal turgor. Normal color with no rashes, no lesions, and no evidence of cellulitis. MS/ Extremity: Pulses equal, no cyanosis. Neurovascular intact. Full, normal range of motion. Neuro: Awake and alert, GCS 15, oriented to person, place, time, and situation. Cranial nerves II-XII grossly intact. Motor strength 5/5 in all extremities. Sensory grossly intact. Cerebellar exam normal. Normal gait. Psych: Awake, alert, with orientation to person, place and time. Behavior, mood, and affect are within normal limits. 04:01 ECG was reviewed by the Attending Physician. 04:01 Abdomen/GI: Inspection: abdomen appears normal, Bowel sounds: normal, Palpation: mild abdominal tenderness, in the left upper quadrant, Liver: no appreciated palpable abnormalities, Hernia: not appreciated. Vital Signs: 01:41 BP 121 / 58; Pulse 77; Resp 18; Temp 97; Pulse Ox 95% on R/A; Weight 77.11 kg; Height 5 tw5 ft. 2 in. (157.48 cm); Pain 7/10; 03:34 BP 114 / 69; Pulse 80; Resp 16; Pulse Ox 96% on R/A; ll3 01:41 Body Mass Index 31.09 (77.11 kg, 157.48 cm) tw5 MDM: 01:56 Patient medically screened. javi 04:03 Differential diagnosis: Anxiety Reaction Pulmonary Embolism reactive airway disease. javi Antibiotic administration: The patient is discharged and will get outpatient antibiotics, Cipro, Flagyl. The patient's Wells Deep Vein Thrombosis Score was calculated as follows: Total Score: 0-2 Pts- Low Risk. The patient's pulmonary embolism risk score was calculated as follows: Total Score: 0-2 points. This patient was found to be at low risk for a pulmonary embolism by using the Well's assessment criteria. Immunization status: Influenza vaccine: Data reviewed: vital signs, nurses notes, lab test result(s), EKG, radiologic studies, CT scan, plain films. Data interpreted: campus monitor: rate is 80 beats/min, rhythm is regular, Pulse oximetry: on room air is 96 %. Test interpretation: by ED physician or midlevel provider: ECG, plain radiologic studies. Counseling: I had a detailed discussion with the patient and/or guardian regarding: the historical points, exam findings, and any diagnostic results supporting the discharge/admit diagnosis, lab results, radiology results. 06/16 01:40 Order name: CBC with Diff; Complete Time: 04:00 tw5 06/16 01:40 Order name: CMP; Complete Time: 04:00 tw5 06/16 01:40 Order name: Lipase; Complete Time: 04:00 tw5 06/16 01:44 Order name: Urine Dipstick-Ancillary; Complete Time: 01:57 EDMS 06/16 01:46 Order name: XRAY Chest (1 view) 5 06/16 01:58 Order name: CT Chest For PE Angio [facility] 06/16 01:58 Order name: CT Abd/Pelvis - IV Contrast Only [facility] 06/16 02:08 Order name: Troponin High Sensitivity; Complete Time: 04:00 EDHI 06/16 01:40 Order name: IV Saline Lock; Complete Time: 02:00 tw5 06/16 01:40 Order name: Labs collected and sent; Complete Time: 02:00 [facility] 06/16 01:40 Order name: Urine Dipstick-Ancillary (obtain specimen); Complete Time: 01:40 [facility] 06/16 01:46 Order name: EKG; Complete Time: 01:47 tw 06/16 01:46 Order name: Cardiac monitoring; Complete Time: 03:33 06/16 01:46 Order name: EKG - Nurse/Tech; Complete Time: 01:54 06/16 01:46 Order name: O2 Per Protocol; Complete Time: 03:29 [facility] 06/16 01:46 Order name: O2 Sat Monitoring; Complete Time: 03:29 EC:01 Rate is 74 beats/min. QRS Hawi is Normal. OR interval is normal. QRS interval is javi normal. QT interval is normal. No Q waves. T waves are Normal. No ST changes noted. Clinical impression: Normal ECG and No evidence of ischemia. Interpreted by me. Reviewed by me. Administered Medications: 03:29 Drug: NS 0.9% 1000 ml Route: IV; Rate: 1 bolus; Site: right antecubital; ll3 05:11 Follow up: Response: No adverse reaction; IV Status: Completed infusion; IV Intake: ll3 1000ml 03:29 Drug: fentaNYL (PF) 50 mcg Route: IVP; Site: right antecubital; ll3 05:10 Follow up: Response: No adverse reaction ll3 03:30 Drug: Zofran (Ondansetron) 4 mg Route: IVP; Site: right antecubital; ll3 05:10 Follow up: Response: No adverse reaction ll3 04:10 Drug: Flagyl (metroNIDAZOLE) 500 mg Volume: 100 ml; Route: IVPB; Rate: 200 ml/hr; ll3 Infused Over: 30 mins; Site: right antecubital; 04:41 Follow up: Response: No adverse reaction; IV Status: Completed infusion; IV Intake: ll3 100ml 04:22 Not Given (Duplicate Order): Cipro (ciprofloxacin) 400 mg 200 ml IVPB once over 60 mins [facility] 04:31 Drug: Cipro (ciprofloxacin) 500 mg Route: PO; ll3 05:10 Follow up: Response: No adverse reaction ll3 04:57 Drug: fentaNYL (PF) 25 mcg Route: IVP; Site: right antecubital; ll3 05:10 Follow up: Response: No adverse reaction ll3 Disposition Summary: 06/16/22 04:55 Discharge Ordered Location: Home javi Problem: new javi Symptoms: have improved javi Condition: Stable javi Diagnosis - Abdominal tenderness - left upper quadrant javi - Dyspnea javi - Tobacco abuse counseling javi - Tobacco use javi - Pleurisy javi - Abnormal findings on diagnostic imaging of other specified body structures - javi multiple scattered pulmonary nodules Followup: javi - With: Ad Soni MD - When: 2 - 3 days - Reason: Recheck today's complaints, Continuance of care, Re-evaluation by your physician Followup: javi - With: Darrell Nash MD - When: 2 - 3 days - Reason: Recheck today's complaints, Continuance of care, Re-evaluation by your physician Followup: javi - With: Turner Richards MD - When: 2 - 3 days - Reason: Recheck today's complaints, Re-evaluation by your physician Discharge Instructions: - Discharge Summary Sheet javi - Abdominal Pain, Adult javi - Pleurisy javi - Steps to Quit Smoking javi - Health Risks of Smoking javi - Abdominal Pain, Adult, [id number] javi - Steps to Quit Smoking, [id number] javi - Pleurisy, [id number] [facility] Forms: - Medication Reconciliation Form javi - Thank You Letter javi - Antibiotic Education javi - Prescription Opioid Use javi - Work release form ll3 Prescriptions: - Flagyl 500 mg Oral Tablet - take 1 tablet by ORAL route every 8 hours for 7 days; 21 tablet; Refills: 0, [facility] Product Selection Permitted - Pepcid 20 mg Oral Tablet - take 1 tablet by ORAL route every 12 hours for 10 days; 20 tablet; Refills: 0, [facility] Product Selection Permitted - Zofran 4 mg Oral Tablet - take 1 tablet by ORAL route every 12 hours As needed; 20 tablet; Refills: 0, javi Product Selection Permitted - Cipro 500 mg Oral Tablet - take 1 tablet by ORAL route every 12 hours for 7 days; 14 tablet; Refills: 0, [facility] Product Selection Permitted - dicyclomine 20 mg Oral Tablet - take 1 tablet by ORAL route 4 times per day; 28 tablet; Refills: 0, Product javi Selection Permitted Signatures: Dispatcher [employer] EDHarjit Medina MD MD cha Wood, Tiffany tw5 Nathalie Kline RN RN ll3 Corrections: (The following items were deleted from the chart) 02:07 01:47 BASIC METABOLIC PANEL+C.LAB.BRZ ordered. EDMS EDMS 02:07 01:47 Troponin High Sensitivity+C.LAB.BRZ ordered. EDMS EDMS
--- NOTE | 2022-06-16 04:56 | ER ---
Nurse's Notes [facility] Name: Gwendolyn Castellanos Age: 51 yrs Sex: Female : 1970 Arrival Date: 06/16/2022 Time: 01:21 Bed 5 Private MD: Diagnosis: Abdominal tenderness-left upper quadrant;Dyspnea;Tobacco abuse counseling;Tobacco use;Pleurisy;Abnormal findings on diagnostic imaging of other specified body structures-multiple scattered pulmonary nodules Presentation: 06/16 01:41 Chief complaint: Patient states: "My stomach on the left side has been hurting me for tw5 the past week, the pain is just getting worse. It is to the point now that it is causing me to feel short of breath, I can hardly even lay on my left side the pain so bad.". Coronavirus screen: Vaccine status: Patient reports being unvaccinated. Ebola Screen: Patient negative for fever greater than or equal to 101.5 degrees Fahrenheit, and additional compatible Ebola Virus Disease symptoms Patient denies exposure to infectious person. Patient denies travel to an Ebola-affected area in the 21 days before illness onset. Initial Sepsis Screen: Does the patient meet any 2 criteria? No. Patient's initial sepsis screen is negative. Does the patient have a suspected source of infection? Yes: Acute abdominal pain. Risk Assessment: Do you want to hurt yourself or someone else? Patient reports no desire to harm self or others. Onset of symptoms is unknown. 01:41 Method Of Arrival: Ambulatory tw5 01:41 Acuity: TERESA 3 tw5 Triage Assessment: 01:43 General: Appears in no apparent distress. Behavior is calm, cooperative, appropriate tw5 for age. Pain: Complains of pain in left upper quadrant Pain currently is 7 out of 10 on a pain scale. Respiratory: Reports shortness of breath due to pain in left side of chest Onset: The symptoms/episode began/occurred at an unknown time. the patient has mild shortness of breath. 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 - Social history:: Smoking status: Smoking status: Patient reports the use of cigarette tobacco products, smokes one-half pack cigarettes per day. Screenin:34 Abuse screen: Denies threats or abuse. Denies injuries from another. Nutritional ll3 screening: No deficits noted. Tuberculosis screening: No symptoms or risk factors identified. Fall Risk None identified. Assessment: 03:34 General: Appears in no apparent distress. uncomfortable, Behavior is calm, cooperative. ll3 Pain: Complains of pain in abdomen Pain radiates to back Pain currently is 7 out of 10 on a pain scale. Pain began 10 days ago Is continuous. Neuro: Level of Consciousness is awake, alert, obeys commands, Oriented to person, place, time, situation. Cardiovascular: Rhythm is sinus rhythm with PACs. Respiratory: Airway is patent Respiratory effort is even, unlabored, Respiratory pattern is regular, symmetrical. Respiratory: GI: Abdomen is round non-distended, Reports upper abdominal pain, nausea, Patient currently denies constipation, diarrhea, vomiting. Derm: Skin is pink, warm \\T\\ dry. Vital Signs: 01:41 BP 121 / 58; Pulse 77; Resp 18; Temp 97; Pulse Ox 95% on R/A; Weight 77.11 kg; Height 5 tw5 ft. 2 in. (157.48 cm); Pain 7/10; 03:34 BP 114 / 69; Pulse 80; Resp 16; Pulse Ox 96% on R/A; ll3 01:41 Body Mass Index 31.09 (77.11 kg, 157.48 cm) tw5 ED Course: 01:21 Patient arrived in ED. bp1 01:42 Triage completed. tw5 01:43 Arm band placed on right wrist. tw5 01:54 EKG done, by ED staff, reviewed by Harjit Garcia MD. Urine collected: clean catch tw5 specimen, cloudy. 01:56 Harjit Garcia MD is Attending Physician. [facility] 02:00 CBC with Diff Sent. tw5 02:00 CMP Sent. tw5 02:00 Lipase Sent. tw5 02:00 Initial lab(s) drawn, by la, sent to lab. Inserted saline lock: 20 gauge in right tw5 antecubital area, using aseptic technique. Blood collected. 02:07 XRAY Chest (1 view) In Process Unspecified. EDMS 02:16 Troponin High Sensitivity Sent. tw5 02:16 CBC with Diff Sent. tw5 02:16 CMP Sent. tw5 02:16 Lipase Sent. tw5 03:23 Nelly Youssef, RN is Primary Nurse. ke1 03:31 CT Chest For PE Angio In Process Unspecified. EDMS 03:32 CT Abd/Pelvis - IV Contrast Only In Process Unspecified. EDMS 03:34 Patient has correct armband on for positive identification. Placed in gown. Bed in low ll3 position. Call light in reach. Side rails up X 1. Client placed on continuous cardiac and pulse oximetry monitoring. NIBP monitoring applied. 04:53 Ad Soni MD is Referral Physician. javi 04:53 Darrell Nash MD is Referral Physician. javi 04:59 Turner Richards MD is Referral Physician. javi 05:10 No provider procedures requiring assistance completed. IV discontinued, intact, ll3 bleeding controlled, No redness/swelling at site. Pressure dressing applied. Administered Medications: 03:29 Drug: NS 0.9% 1000 ml Route: IV; Rate: 1 bolus; Site: right antecubital; ll3 05:11 Follow up: Response: No adverse reaction; IV Status: Completed infusion; IV Intake: ll3 1000ml 03:29 Drug: fentaNYL (PF) 50 mcg Route: IVP; Site: right antecubital; ll3 05:10 Follow up: Response: No adverse reaction ll3 03:30 Drug: Zofran (Ondansetron) 4 mg Route: IVP; Site: right antecubital; ll3 05:10 Follow up: Response: No adverse reaction ll3 04:10 Drug: Flagyl (metroNIDAZOLE) 500 mg Volume: 100 ml; Route: IVPB; Rate: 200 ml/hr; ll3 Infused Over: 30 mins; Site: right antecubital; 04:41 Follow up: Response: No adverse reaction; IV Status: Completed infusion; IV Intake: ll3 100ml 04:22 Not Given (Duplicate Order): Cipro (ciprofloxacin) 400 mg 200 ml IVPB once over 60 mins javi 04:31 Drug: Cipro (ciprofloxacin) 500 mg Route: PO; ll3 05:10 Follow up: Response: No adverse reaction ll3 04:57 Drug: fentaNYL (PF) 25 mcg Route: IVP; Site: right antecubital; ll3 05:10 Follow up: Response: No adverse reaction ll3 Medication: 05:10 VIS not applicable for this client. ll3 Intake: 04:41 IV: 100ml; Total: 100ml. ll3 05:11 IV: 1000ml; Total: 1100ml. ll3 Outcome: 04:55 Discharge ordered by . javi 05:10 Discharged to home ambulatory, with family. ll3 05:10 Condition: stable 05:10 Discharge instructions given to patient, Instructed on discharge instructions, follow up and referral plans. medication usage, Demonstrated understanding of instructions, follow-up care, medications, Prescriptions given X 5 05:11 Patient left the ED. ll3 Signatures: Dispatcher [employer] EDMS Harjit Garcia MD MD cha Paniauga, Brittany bp1 Wood, Tiffany tw5 Nathalie Kline RN RN ll3 Nelly Youssef RN RN ke1 Corrections: (The following items were deleted from the chart) 02:07 02:00 BASIC METABOLIC PANEL+C.LAB.BRZ drawn and sent. tw5 EDMS 02:07 02:00 Troponin High Sensitivity+C.LAB.BRZ drawn and sent. tw5 EDMS
[2022-06-16 05:49] VITALS: TEMP 97
[2022-06-16 05:54] VITALS: BP 114/69; O2SAT 96
--- NOTE | 2022-06-16 15:56 | EKG ---
Test Date: 2022-06-16 Test Time: 01:50:51 Analytical Lead: MEASUREMENT RESULTS: Intervals: Rate: 74 IA: 160 QRSD: 86 QT: 410 QTc: 455 [place]: P: 38 IA: 160 QRS: -18 T: 17 INTERPRETIVE STATEMENTS: Normal sinus rhythm Cannot rule out Anterior infarct, age undetermined Abnormal ECG Compared to ECG 12/25/2020 10:14:30 No significant changes Electronically Signed On 06-16-22 15:55:03 CDT by Ga Hernandez
--- NOTE | 2022-06-17 16:38 | RAD REPORT ---
EXAM DESCRIPTION: CT - Abdomen Pelvis W Contrast - 06/16/2022 3:30 am CLINICAL HISTORY: 51 years Female dyspnea COMPARISON: CT chest and CT abdomen pelvis 08/24/2020. TECHNIQUE: Intravenous low osmolar contrast. Coronal and sagittal reformations including 3D maximu m intensity projections. This exam was performed according to our departmental dose-optimization program, which includes autom ated exposure control, adjustment of the mA and/or kV according to patient size and/or use of iterati ve reconstruction technique. FINDINGS: CTA CHEST: Exam degraded by motion. PULMONARY ARTERIAL SYSTEM: Contrast bolus is adequate. No CT evidence for pulmonary embolism. CARDIAC: Normal. AORTA/VASCULAR: No aneurysm. No aortic dissection. Mild thoracic aortic atherosclerosis. LYMPH NODES/MEDIASTINUM: No thoracic adenopathy. CENTRAL AIRWAYS: Central airways are patent. LUNGS: No focal consolidation. Multiple scattered bilateral pulmonary nodules, with insurance representative no dule in the right lower lobe measuring 5 mm (axial lung image 68). PLEURA: Normal. ESOPHAGUS: Collapsed and not well assessed by CT, without obvious abnormality. THYROID: Negative, where seen. CHEST WALL: Normal. THORACIC SKELETAL: No acute finding. ADDITIONAL CHEST FINDINGS: None. CT ABDOMEN/PELVIS: Abdomen: Stomach: Within normal limits Liver: No focal lesions. Hepatic steatosis. No intrahepatic ductal distention. Gallbladder: Surgically absent. Pancreas: Within normal limits Spleen: Within normal limits Right kidney: No hydronephrosis. No focal lesion. Left kidney: No hydronephrosis. Subcentimeter ovoid hypodensity, too small to characterize. Adrenal glands: Within normal limits Vascular structures: No abdominal aortic aneurysm. Mild atherosclerosis of the abdominal aorta. No ao rtic dissection. Origin of the celiac axis, SMA, and LYNN are patent. Origins of the bilateral renal a rteries are patent. Nodes: No lymphadenopathy by size criteria Pelvis: Small bowel: No significant distention. Appendix: Within normal limits Colon: No distention or acute pericolonic edema. Peritoneum: No free intraperitoneal fluid or air. Bones: No acute bone findings. Bladder: Unremarkable. Reproductive organs: No acute findings. Soft tissues: No acute findings. IMPRESSION: 1. No evidence of acute pulmonary embolus. 2. No focal consolidation. 3. Multiple scattered bilateral pulmonary nodules, with insurance representative nodule in the right lower lo be measuring 5 mm. If patient is low risk for malignancy, no routine follow-up imaging is recommend ed; if patient is high risk for malignancy, a non-contrast Chest CT at 12 months is optional. If perf ormed and the nodule is stable at 12 months, no further follow-up is recommended. 4. No acute findings in the abdomen or pelvis. 5. Hepatic steatosis. Electronically signed by: Ford Flores MD 06/16/2022 4:01 AM CDT Due to temporary technical issues with the PACS/Fluency reporting system, reports are being signed by the in house radiologists without review as a courtesy to insure prompt reporting. The interpreting radiologist is fully responsible for the content of the report.
--- NOTE | 2022-06-17 16:40 | RAD REPORT ---
EXAM DESCRIPTION: RAD - Chest Single View - 06/16/2022 2:05 am CLINICAL HISTORY: 51 years, Female, PAIN COMPARISON: None. FINDINGS: Single view of the chest was obtained portable. No prior films are available for compariso n. Lung limit slightly decreased. The cardiomediastinal silhouette demonstrate to be unremarkable. Th e heart is not enlarged. The thoracic aorta is unremarkable. The pulmonary vasculature is normal dist ribution. Costophrenic angles are sharp. No areas of consolidation or masses are seen. The rest o f the soft tissue and bony structures demonstrate to be unremarkable. IMPRESSION: No acute cardiopulmonary disease identified. Electronically signed by: Brice Jeong MD 06/16/2022 2:32 AM CDT Due to temporary technical issues with the PACS/Fluency reporting system, reports are being signed by the in house radiologists without review as a courtesy to insure prompt reporting. The interpreting radiologist is fully responsible for the content of the report.
--- NOTE | 2022-06-17 16:47 | RAD REPORT ---
EXAM DESCRIPTION: CT - Chest For Pe Angio - 06/16/2022 3:30 am CLINICAL HISTORY: 51 years Female dyspnea COMPARISON: CT chest and CT abdomen pelvis 08/24/2020. TECHNIQUE: Intravenous low osmolar contrast. Coronal and sagittal reformations including 3D maximu m intensity projections. This exam was performed according to our departmental dose-optimization program, which includes autom ated exposure control, adjustment of the mA and/or kV according to patient size and/or use of iterati ve reconstruction technique. FINDINGS: CTA CHEST: Exam degraded by motion. PULMONARY ARTERIAL SYSTEM: Contrast bolus is adequate. No CT evidence for pulmonary embolism. CARDIAC: Normal. AORTA/VASCULAR: No aneurysm. No aortic dissection. Mild thoracic aortic atherosclerosis. LYMPH NODES/MEDIASTINUM: No thoracic adenopathy. CENTRAL AIRWAYS: Central airways are patent. LUNGS: No focal consolidation. Multiple scattered bilateral pulmonary nodules, with medical representative no dule in the right lower lobe measuring 5 mm (axial lung image 68). PLEURA: Normal. ESOPHAGUS: Collapsed and not well assessed by CT, without obvious abnormality. THYROID: Negative, where seen. CHEST WALL: Normal. THORACIC SKELETAL: No acute finding. ADDITIONAL CHEST FINDINGS: None. CT ABDOMEN/PELVIS: Abdomen: Stomach: Within normal limits Liver: No focal lesions. Hepatic steatosis. No intrahepatic ductal distention. Gallbladder: Surgically absent. Pancreas: Within normal limits Spleen: Within normal limits Right kidney: No hydronephrosis. No focal lesion. Left kidney: No hydronephrosis. Subcentimeter ovoid hypodensity, too small to characterize. Adrenal glands: Within normal limits Vascular structures: No abdominal aortic aneurysm. Mild atherosclerosis of the abdominal aorta. No ao rtic dissection. Origin of the celiac axis, SMA, and LYNN are patent. Origins of the bilateral renal a rteries are patent. Nodes: No lymphadenopathy by size criteria Pelvis: Small bowel: No significant distention. Appendix: Within normal limits Colon: No distention or acute pericolonic edema. Peritoneum: No free intraperitoneal fluid or air. Bones: No acute bone findings. Bladder: Unremarkable. Reproductive organs: No acute findings. Soft tissues: No acute findings. IMPRESSION: 1. No evidence of acute pulmonary embolus. 2. No focal consolidation. 3. Multiple scattered bilateral pulmonary nodules, with medical representative nodule in the right lower lo be measuring 5 mm. If patient is low risk for malignancy, no routine follow-up imaging is recommend ed; if patient is high risk for malignancy, a non-contrast Chest CT at 12 months is optional. If perf ormed and the nodule is stable at 12 months, no further follow-up is recommended. 4. No acute findings in the abdomen or pelvis. 5. Hepatic steatosis. Electronically signed by: Ford Flores MD 06/16/2022 4:01 AM CDT Due to temporary technical issues with the PACS/Fluency reporting system, reports are being signed by the in house radiologists without review as a courtesy to insure prompt reporting. The interpreting radiologist is fully responsible for the content of the report.
== END 2022-06-16 05:11 | disposition home or self-care (01) ==
LOC: ER 01:16
DX: R10.812 Left upper quadrant abdominal tenderness (principal); R06.00 Dyspnea, unspecified; R09.1 Pleurisy; R91.8 Other nonspecific abnormal finding of lung field; Z72.0 Tobacco use; Z71.6 Tobacco abuse counseling
CPT/HCPCS: 36415; 71045; 71275; 74177; 80053; 81003; 83690; 84484; 85025; 93005; 96361; 96365; 96375; 99284; J0744; J2405; J3010; J7030; Q9967

== ENCOUNTER 2023-01-21 09:33 | Emergency (ER) | payer SELFPAY ==
--- OUTSIDE RECORDS SUMMARY | 2023-01-21 09:37 | XMS REPORT | Continuity of Care Document ---
:1970 Author Organization [facility] t Address [address] [place] [address] [place] [id number] Care Team Providers Name Role Phone Pcp, Patient Does Not Have A Primary Care Physician +[phone] [id number] Pcp, Patient Does Not Have A Attending Clinician [id number] [phone] TOÑITO CONTRERAS Attending Clinician Unavailable Toñito Contreras MD Attending Clinician MOHIT GONZALES Attending Clinician Unavailable Mohit Larsen Attending Clinician FLORENTINO MALONEY Admitting Clinician Unavailable DONNA GUZMAN Admitting Clinician Unavailable Payers Payer Name Policy Type Policy Number Effective Date Expiration Date S ource Problems Condition Condition Condition Status Onset Resolution Last Treating Co mments Source Name Details Category Date Date Treatment Clinician Date No known No known Disease Unive rs active active ity of problems problems [facility] Allergies, Adverse Reactions, Alerts Allergy Allergy Status Severity Reaction(s) Onset Inactive Treating Comm ents Source Name Type Date Date Clinician NO KNOWN Drug Active Univers ALLERGIE Class ity of S [facility] Social History Social Habit Start Date Stop Date Quantity Comments Source Exposure to 2022-05-30 2022-06-09 Not sure [facility] SARS-CoV-2 (event) 00:00:00 17:40:00 Medica l Branch Sex Assigned At [birth year] [facility] 00:00:00 00:00:00 Medical Branch Smoking Status Start Date Stop Date Source Tobacco smoking consumption Univ [facility] Medical unknown Branch Medications Ordered Filled Start Stop Current Ordering Indication Dosage Frequency Signature Comments Components Source Medication Medication Date Date Medication? Clinician (SIG) Name Name ibuprofen 2021-08 Yes [id number] 800mg Take 1 [facility] 800 mg 0-24 tablet by ity of tablet 00:00: mouth [place] 00 every 6 Medical (six) Branch hours as needed for Pain (scale 4-6). ibuprofen 2021-08 Yes [id number] 800mg Take 1 Univers 800 mg 0-24 tablet by ity of tablet 00:00: mouth [place] 00 every 6 Medical (six) Branch hours as needed for Pain (scale 4-6). ibuprofen No 600mg 600 mg, Uni vers (IBU) [...]
Duration of Therapy: Other (see Comments) doxycycline Yes [id number] 100mg Take 1 Univers hyclate 100 11-16 capsule by it [place] of mg capsule [place] (two[place] Medical times Branch daily. ibuprofen Yes [id number] 600mg Take 1 Univers 600 mg -02 tablet by ity of tablet 00:00: mouth [place] 00 every 8 Medical (eight) Branch hours as needed for Pain (scale 4-6). doxycycline Yes [id number] 100mg Take 1 [facility] hyclate 100 4-02 capsule by it y of mg capsule [place]:00[place] (two) Medical times Branch daily. ibuprofen 0 Yes [id number] 600mg Take 1 Univers 600 mg 4-02 tablet by ity of tablet 00:00: mouth [place] 00 every 8 Medical (eight) Branch hours as needed for Pain (scale 4-6). doxycycline Yes [id number] 100mg Take 1 Univers hyclate 100 4-02 capsule by it y of mg capsule 00:00: [place] (two) Medical times Branch daily. ibuprofen 0 Yes [id number] 600mg Take 1 Univers 600 mg 4-02 tablet by ity of tablet 00:00: mouth [place] 00 every 8 Medical (eight) Branch hours as needed for Pain (scale 4-6). cephALEXin 2021- No [id number] 500mg Take 1 Univers (KEFLEX) 4-02 04-13 capsule by ity of 500 mg 00:00: 04:59 mouth 4 [place] capsule 00 :00 (four) Medical times Branch daily for 10 days. Vital Signs Vital Name Observation Time Observation Value Comments Source Systolic blood 2022-06-09 22:43:00 143 [facility]Hg[facility] 2022-06-09 22:43:00 80 mm[Hg] Unive [facility] Heart rate 2022-06-09 22:43:00 91 /min [facility] Body temperature 2022-06-09 22:43:00 36.67 [facility] Respiratory rate 2022-06-09 22:43:00 18 /min [facility] Body weight 2022-06-09 22:43:00 86.183 kg [facility] Oxygen saturation in 2022-06-09 22:43:00 97 /min [facility] Arterial blood by [facility] Pulse oximetry Branch Systolic blood 2021-11-16 21:27:00 165 mm[Hg] [facility] Diastolic blood 2021-11-16 21:27:00 94 mm[Hg] Unive [facility] Heart rate 2021-11-16 21:27:00 88 /min [facility] Body temperature 2021-11-16 21:27:00 36.67 [facility] Respiratory rate 2021-11-16 21:27:00 17 /min [facility] Body weight 2021-11-16 21:27:00 86.183 kg [facility] Oxygen saturation in 2021-11-16 21:27:00 97 /min [facility] Arterial blood by [facility] Pulse oximetry Branch Procedures Procedure Date / Time Performing Clinician Source Performed XR CHEST 2 VW 2022-06-09 23:35:43 Florentino Maloney [facility] LIPASE 2022-06-09 23:22:00 Florentino Maloney [facility] TROPONIN I 2022-06-09 23:22:00 Florentino Maloney [facility] COMP. METABOLIC PANEL 2022-06-09 23:22:00 Florentino Maloney [facility] ([id number]) [facility] CBC WITH DIFF 2022-06-09 23:22:00 Florentino Maloney [facility] PROTHROMBIN TIME / INR 2022-06-09 23:22:00 Florentino Maloney [facility] D-DIMER 2022-06-09 23:22:00 Florentino Maloney [facility] ACTIVATED PARTIAL 2022-06-09 23:22:00 Florentino Maloney [facility]-BNP 2022-06-09 23:22:00 Florentino Maloney [facility] CONSENT/REFUSAL FOR 2022-06-09 22:39:17 Doctor Unassigned, No [facility] [place] [facility] XR HAND 3+ VW RIGHT 2021-11-16 23:01:00 Rachel Lopez [facility] CONSENT/REFUSAL FOR 2021-11-16 21:27:37 Doctor Unassigned, No [facility] [place] [facility] Name [facility] Encounters Start End Encounter Admission Attending Care Care Encounter Source Date/Time Date/Time Type Type Clinicians Facility Department ID 2022-06-19 2022-06-19 Refill Pcp, [facility] [id number] Univers 00:00:00 00:00:00 Patient PRIMARY [id number] it y of Does Not CARE [id number] Wei as Have A PAVILLION [id number] Ga dical 044 Branch 2022-06-09 2022-06-09 Emergency X BEN, [facility] ERT [id number] Univers 17:44:00 20:26:00 TOÑITO ity of [facility] 2022-06-09 2022-06-09 Emergency Ben, [place] [id number] Univers 17:44:00 20:26:00 Toñito [facility] [id number] [id number] [id number] [facility] zara 014 Branch 2021-11-16 2021-11-16 Emergency X VINCENT, [facility] ERT [id number] Univers 16:32:00 19:24:00 MOHIT ity of [facility] 2021-11-16 2021-11-16 Emergency Vincent, [place] [id number] Univers 16:32:00 19:24:00 [facility] [id number] [id number] [id number] [facility] 014 [place] Results This patient has no known results.
[2023-01-21] MEDS ORDERED: ONDANSETRON 4 MG/2 ML VIAL ONE (09:56)
[2023-01-21] MEDS ORDERED: MECLIZINE HCL 12.5 MG TAB ONE (09:56)
[2023-01-21] MEDS ORDERED: NA CHLORIDE 0.9% 1,000 ML ONE (09:56)
[2023-01-21 10:14] LABS: Absolute Lymphocytes (CBC) 2.4 K/uL (0.7-4.9); Lymphocytes % 26.3 % (15.3-44.8); MCV 92.4 fL (80-100); MPV 8.1 fL (7.6-11.3); RBC Red Blood Cell Count 4.65 M/uL (3.86-4.86)
--- NOTE | 2023-01-21 10:40 | RAD REPORT ---
EXAM DESCRIPTION: CT - Head Brain Wo Cont - 01/21/2023 10:25 am CLINICAL HISTORY: DIZZINESS Headache, drowsiness COMPARISON: Head angio dated 01/21/2023 TECHNIQUE: All CT scans are performed using dose optimization technique as appropriate and may inclu de automated exposure control or mA/KV adjustment according to patient size. FINDINGS: No intracranial hemorrhage, hydrocephalus or extra-axial fluid collection.No areas of brai n edema or evidence of midline shift. The paranasal sinuses and mastoids are clear. The calvarium is intact. IMPRESSION: No acute intracranial abnormality.
--- NOTE | 2023-01-21 10:46 | RAD REPORT ---
EXAM DESCRIPTION: CT - Head angio - 01/21/2023 10:25 am CLINICAL HISTORY: DIZZINESS Headache, drowsiness COMPARISON: No comparisons TECHNIQUE: CT angiography of the head was performed with MIPs. All CT scans are performed using dose optimization technique as appropriate and may include automated exposure control or mA/KV adjustment according to patient size. FINDINGS: No evidence of large vessel occlusion. No evidence of aneurysm is detected. No flow-limiti ng stenosis or vascular malformation identified. Antegrade flow is seen in the vertebral arteries. The vertebral arteries are codominant. The visualized dural venous sinuses are patent. IMPRESSION: No significant flow abnormality is detected.
--- NOTE | 2023-01-21 10:49 | RAD REPORT ---
EXAM DESCRIPTION: CT - Neck Angio - 01/21/2023 10:25 am CLINICAL HISTORY: dizziness Headache, drowsiness, CVA symptomology COMPARISON: Soft Tissue Neck W/Contr dated 12/05/2020 TECHNIQUE: CT angiography of the neck vessels was performed with MIPs. All CT scans are performed using dose optimization technique as appropriate and may include automated exposure control or mA/KV adjustment according to patient size. FINDINGS: A left aortic arch is identified with normal three vessel configuration of the great vesse ls. No significant flow abnormality is seen of the common carotid bilaterally. No significant stenosis is identified involving the cervical segments of both internal carotid arteri es. Normal flow is seen within both vertebral arteries. IMPRESSION: No significant flow abnormality of the neck vessels is identified. NASCET criteria used. Mild 0-49% stenosis Moderate 50-69% stenosis Severe 70-99% stenosis
[2023-01-21 11:11] LABS: Albumin 3.2 g/dL (3.4-5.0); Bilirubin Total 0.4 mg/dL (0.2-1.0); Potassium 3.6 mEq/L (3.5-5.1); Protein, Total 7.2 g/dL (6.4-8.2); Troponin High Sensitivity 3.5 pg/mL (<58.9)
[2023-01-21] MEDS ORDERED: DIAZEPAM 10 MG/2 ML INJ SYRINGE ONE (11:34)
--- NOTE | 2023-01-21 12:54 | RAD REPORT ---
EXAM DESCRIPTION: MRI - Brain Wo Cont - 01/21/2023 12:40 pm CLINICAL HISTORY: DIZZINESS COMPARISON: Noncontrast head CT and CT angiogram of the same day TECHNIQUE: Multiplanar multisequence MRI of the brain performed without IV contrast. FINDINGS: Motion artifact somewhat limits evaluation on some sequences, despite attempts at repeat i maging. No evidence of acute infarct or other diffusion signal abnormality. No evidence of acute intracranial hemorrhage or abnormal extra-axial fluid collections. Ventricular caliber within normal for age. Tiny T2 hyperintense anterior left lateral ventricle body choroid plexus cyst. Midline structures are unremarkable. No significant white matter signal abnormalities. Right parasagittal frontal small prominent perivasc ular space. No mass effect or midline shift. Major vascular flow voids are preserved. Mastoid air cells and paranasal sinuses are clear. IMPRESSION: No acute intracranial process. No evidence of ventriculomegaly or mass effect.
--- NOTE | 2023-01-21 13:00 | EDPHYS ---
Physician Documentation [facility] Name: Gwendolyn Castellanos Age: 52 yrs Sex: Female : 1970 Arrival Date: 01/21/2023 Time: 09:33 Bed 4 Private MD: ED Physician Nahun Murray HPI: 01/21 09:41 This 52 yrs old Female presents to ER via Wheelchair with complaints of Dizziness, jmm Vomiting. 09:41 The patient presents with dizziness. Onset: The symptoms/episode began/occurred jmm acutely, last night. Modifying factors: The symptoms are alleviated by closing eyes, the symptoms are aggravated by movement of head, changing position. Associated signs and symptoms: Pertinent positives: nausea, vomiting. This is a 52 year old femal with a history of DM, that presents to the ED with complaints of dizziness beginning last night. Patient states she began to vomit this morning. Patient alleviates symptoms by holding head still. Denies similar episodes in the past. . Historical: - Allergies: 09:44 No Known Allergies; hb - Home Meds: 09:44 metformin 500 mg Oral Tb24 1 tab 2 times per day [Active]; hb - PMHx: 09:44 Diabetes - NIDDM; hb ROS: 09:41 Constitutional: Negative for fever, chills, and weight loss, Cardiovascular: Negative jmm for chest pain, palpitations, and edema, Respiratory: Negative for shortness of breath, cough, wheezing, and pleuritic chest pain. 09:41 Abdomen/GI: Positive for nausea and vomiting. 09:41 Neuro: Positive for dizziness. 09:41 All other systems are negative. Exam: 09:41 Head/Face: atraumatic. jmm 09:41 ENT: Moist Mucus Membranes Neck: Trachea midline, Supple Chest/axilla: Normal chest wall appearance and motion. Cardiovascular: Regular rate and rhythm. No edema appreciated Respiratory: Normal respirations, no respiratory distress appreciated Abdomen/GI: Non distended Back: Normal ROM Skin: General appearance color normal MS/ Extremity: Moves all extremities, no obvious deformities appreciated, no edema noted to the lower extremities Neuro: Awake and alert Psych: Behavior is normal, Mood is normal, Patient is cooperative and pleasant 09:41 Constitutional: The patient appears alert, awake, uncomfortable. 09:41 Eyes: Nystagmus: horizontal nystagmus. Vital Signs: 09:43 BP 143 / 80; Pulse 68; Resp 16; Temp 97.8(O); Pulse Ox 96% on R/A; Weight 74.84 kg; hb Height 5 ft. 3 in. ; Pain 5/10; 11:01 BP 125 / 59; Pulse 71; Resp 18; Pulse Ox 97% on R/A; ld1 12:07 BP 116 / 66; Pulse 70; Resp 16; Pulse Ox 98% on R/A; vg1 12:57 BP 115 / 39; Pulse 69; Resp 16; Pulse Ox 98% on R/A; mb9 13:38 BP 119 / 67; Pulse 74; Resp 16; Pulse Ox 99% on R/A; mb9 09:43 Body Mass Index 29.23 (74.84 kg, 160.02 cm) hb 09:43 Pain Scale: Adult hb MDM: 09:41 Patient medically screened. [facility] 13:16 Differential diagnosis: cardiac arrhythmia, CVA, generalized weakness, GI bleed, head [facility] injury, hyperventilation, hypovolemia, idiopathic dizziness, near-syncope, sepsis, syncope, TIA, vertigo. 13:16 Data reviewed: vital signs, nurses notes, lab test result(s), EKG, radiologic studies, [facility] CT scan, MRI. Consideration of Admission/Observation Escalation of care including admission/observation considered. I considered the following discharge prescriptions or medication management in the emergency department Medications were administered in the Emergency Department. See MAR. Counseling: I had a detailed discussion with the patient and/or guardian regarding: the historical points, exam findings, and any diagnostic results supporting the discharge/admit diagnosis, lab results, radiology results, the need for outpatient follow up, to return to the emergency department if symptoms worsen or persist or if there are any questions or concerns that arise at home. ED course: Symptoms alleviated in the ED. Reevaluation did reveal right TM erythema. Will treat with oral antibiotics. Patient advised follow-up PCP otherwise given strict return precautions. Patient understood and agrees plan of care peer. 01/21 09:44 Order name: CBC with Diff; Complete Time: 10:35 [facility] 01/21 09:44 Order name: CMP; Complete Time: 11:18 [facility] 01/21 09:44 Order name: Lipase; Complete Time: 11:18 [facility] 01/21 09:44 Order name: Troponin High Sensitivity; Complete Time: 11:18 [facility] 01/21 09:45 Order name: CT Head Brain wo Cont; Complete Time: 10:57 [facility] 01/21 09:45 Order name: CT Head Angio; Complete Time: 10:57 [facility] 01/21 09:45 Order name: CT Neck Angio; Complete Time: 10:57 [facility] 01/21 11:22 Order name: MRI - Brain Wo Cont; Complete Time: 12:57 [facility] 01/21 09:44 Order name: IV Saline Lock; Complete Time: 09:56 [facility] 01/21 09:44 Order name: Labs collected and sent; Complete Time: 09:56 jm Administered Medications: 09:52 Drug: NS 0.9% IV 1000 ml Route: IV; Rate: 1 bolus; Site: left antecubital; vg1 12:07 Follow up: IV Status: Completed infusion; IV Intake: 1000ml vg1 09:53 Drug: Ondansetron IVP 4 mg Route: IVP; Site: left antecubital; vg1 12:05 Follow up: Response: No adverse reaction ld1 12:07 Follow up: Response: No adverse reaction; Marked relief of symptoms vg1 09:55 Drug: Meclizine PO 50 mg Route: PO; vg1 12:04 Follow up: Response: No adverse reaction ld1 11:28 Drug: Diazepam IVP 2 mg Route: IVP; Site: left antecubital; ld1 12:04 Follow up: Response: No adverse reaction ld1 13:16 Drug: metoCLOPramide IVP 10 mg Route: IVP; Site: left antecubital; mb9 Disposition: 11:22 PA/COUNTER HELP's history reviewed, patient interviewed, and examined. HPI: 52-year-old female ms3 with past medical history of diabetes presents for dizziness that began last night. Patient denies alleviating factors. Patient states the dizziness is worse with movement of her head. Patient denies pain at this time. My personal exam of patient reveals: Patient is alert and oriented x4, no apparent distress, nontoxic-appearing. Heart rate and rhythm are regular without murmurs rubs or gallops. Lungs clear to auscultation bilaterally. Abdomen is nontender to palpation with bowel sounds present. Finger-nose intact, sensation intact, strength 5/5 upper and lower extremities I agree with assessment and care plan and confirm the diagnosis (es) above. Disposition Summary: 01/21/23 12:59 Discharge Ordered Location: Home [facility] Condition: Stable [facility] Diagnosis - Other peripheral vertigo [facility] - Acute serous otitis media, right ear [facility] Followup: [facility] - With: Private Physician - When: 2 - 3 days - Reason: Recheck today's complaints, Continuance of care, Re-evaluation by your physician Discharge Instructions: - Discharge Summary Sheet [facility] - Vertigo [facility] - How to Perform the Boogie Maneuver [facility] Forms: - Medication Reconciliation Form [facility] - Thank You Letter [facility] - Antibiotic Education [facility] - Prescription Opioid Use [facility] - Work release form iw Prescriptions: - ondansetron 4 mg Oral Tablet,disintegrating - take 1 tablet by ORAL route every 4-6 hours As needed; 30 tablet; Refills: 0, [facility] Product Selection Permitted - Amoxicillin 875 mg Oral Tablet - take 1 tablet by ORAL route every 12 hours for 10 days; 20 tablet; Refills: 0, [facility] Product Selection Permitted - Meclizine 25 mg Oral Tablet - take 1 tablet by ORAL route every 8 hours As needed; 30 tablet; Refills: 0, [facility] Product Selection Permitted Signatures: Dispatcher [employer] EDMike Mendoza PA PA [facility] Caroline Orozco, RN Ariane Avendano RN RN vg1 Nahun Murray DO DO ms3 Sri Murray RN RN ld1 Alisha Tom RN RN mb9
--- NOTE | 2023-01-21 13:00 | ER ---
Nurse's Notes [facility] Name: Gwendolyn Castellanos Age: 52 yrs Sex: Female : 1970 Arrival Date: 01/21/2023 Time: 09:33 Bed 4 Private MD: Diagnosis: Other peripheral vertigo;Acute serous otitis media, right ear Presentation: 01/21 09:43 Chief complaint: Dizziness, abdominal cramping, and N/V since last night. Coronavirus hb screen: At this time, the client does not indicate any symptoms associated with coronavirus-19. Ebola Screen: No symptoms or risks identified at this time. Initial Sepsis Screen: Does the patient meet any 2 criteria? No. Patient's initial sepsis screen is negative. Does the patient have a suspected source of infection? No. Patient's initial sepsis screen is negative. Risk Assessment: Do you want to hurt yourself or someone else? Patient reports no desire to harm self or others. Onset of symptoms was January 20, 2023. 09:43 Method Of Arrival: Wheelchair hb 09:43 Acuity: TERESA 3 hb Historical: - Allergies: 09:44 No Known Allergies; hb - Home Meds: 09:44 metformin 500 mg Oral Tb24 1 tab 2 times per day [Active]; hb - PMHx: 09:44 Diabetes - NIDDM; hb Screenin:56 [facility] ED Fall Risk Assessment (Adult) History of falling in the last 3 months, ld1 including since admission No falls in past 3 months (0 pts). Abuse screen: Denies threats or abuse. Denies injuries from another. Nutritional screening: No deficits noted. Nutritional screening: No deficits noted. 09:56 Tuberculosis screening: No symptoms or risk factors identified. ld1 Assessment: 09:56 General: Appears in no apparent distress. comfortable, Behavior is calm, cooperative, ld1 appropriate for age. Pain: Denies pain. Neuro: Level of Consciousness is awake, alert, obeys commands, Oriented to person, place, time, situation. Neuro: Reports dizziness, since 0300 AM. Cardiovascular: Capillary refill < 3 seconds Patient's skin is warm and dry. Rhythm is regular. Respiratory: Airway is patent Respiratory effort is even, unlabored. GI: Abdomen is round non-distended, Reports nausea, vomiting. : No signs and/or symptoms were reported regarding the genitourinary system. EENT: No signs and/or symptoms were reported regarding the EENT system. Derm: No signs and/or symptoms reported regarding the dermatologic system. Musculoskeletal: No signs and/or symptoms reported regarding the musculoskeletal system. 12:07 Reassessment: Patient appears in no apparent distress at this time. Patient and/or vg1 family updated on plan of care and expected duration. Pain level reassessed. Patient is alert, oriented x 3, equal unlabored respirations, skin warm/dry/pink. Patient states feeling better. 13:19 Reassessment: pt able to be discharged after bolus of fluids. mb9 13:25 Reassessment: pt able to ambulate without N/V. mb9 13:39 Reassessment: Patient and/or family updated on plan of care and expected duration. Pain mb9 level reassessed. Patient is alert, oriented x 3, equal unlabored respirations, skin warm/dry/pink. Patient states feeling better. Patient states symptoms have improved. Vital Signs: 09:43 BP 143 / 80; Pulse 68; Resp 16; Temp 97.8(O); Pulse Ox 96% on R/A; Weight 74.84 kg; hb Height 5 ft. 3 in. ; Pain 5/10; 11:01 BP 125 / 59; Pulse 71; Resp 18; Pulse Ox 97% on R/A; ld1 12:07 BP 116 / 66; Pulse 70; Resp 16; Pulse Ox 98% on R/A; vg1 12:57 BP 115 / 39; Pulse 69; Resp 16; Pulse Ox 98% on R/A; mb9 13:38 BP 119 / 67; Pulse 74; Resp 16; Pulse Ox 99% on R/A; mb9 09:43 Body Mass Index 29.23 (74.84 kg, 160.02 cm) hb 09:43 Pain Scale: Adult hb ED Course: 09:35 Patient arrived in ED. ts1 09:38 Ariane Brasher, MEHREEN is Primary Nurse. vg1 09:39 Mike Pink PA is PHCP. jmm 09:39 Nahun Murray DO is Attending Physician. jmm 09:44 Triage completed. hb 09:56 No provider procedures requiring assistance completed. Inserted saline lock: 20 gauge ld1 in left antecubital area, using aseptic technique. Blood collected. 09:56 Patient has correct armband on for positive identification. Placed in gown. Bed in low ld1 position. Call light in reach. Side rails up X2. manager monitoring on. Pulse ox on. NIBP on. Door closed. Noise minimized. Warm blanket given. 10:08 CT Head Brain wo Cont In Process Unspecified. EDMS 10:12 CT Head Angio In Process Unspecified. EDMS 10:12 CT Neck Angio In Process Unspecified. EDMS 12:26 MRI - Brain Wo Cont In Process Unspecified. EDMS Administered Medications: 09:52 Drug: NS 0.9% IV 1000 ml Route: IV; Rate: 1 bolus; Site: left antecubital; vg1 12:07 Follow up: IV Status: Completed infusion; IV Intake: 1000ml vg1 09:53 Drug: Ondansetron IVP 4 mg Route: IVP; Site: left antecubital; vg1 12:05 Follow up: Response: No adverse reaction ld1 12:07 Follow up: Response: No adverse reaction; Marked relief of symptoms vg1 09:55 Drug: Meclizine PO 50 mg Route: PO; vg1 12:04 Follow up: Response: No adverse reaction ld1 11:28 Drug: Diazepam IVP 2 mg Route: IVP; Site: left antecubital; ld1 12:04 Follow up: Response: No adverse reaction ld1 13:16 Drug: metoCLOPramide IVP 10 mg Route: IVP; Site: left antecubital; mb9 Intake: 12:07 IV: 1000ml; Total: 1000ml. vg1 Outcome: 12:59 Discharge ordered by MD. mart 13:46 Patient left the ED. mb9 Signatures: Dispatcher [employer] EDMS Mike Pink PA PA jmm Baxter, Heather RN rAiane Avendano RN RN vg1 Sri Murray RN RN ld1 Alisha Tom RN RN mb9 Tawny Hammond PAS PAS ts1
[2023-01-21] MEDS ORDERED: METOCLOPRAMIDE 10 MG/2mL INJ ONE (13:19)
[2023-01-21] MEDS ORDERED: NA CHLORIDE 0.9% 250 ML ONE (13:19)
[2023-01-21 14:05] VITALS: TEMP 97.8
[2023-01-21 14:12] VITALS: BP 119/67; O2SAT 99
== END 2023-01-21 13:46 | disposition home or self-care (01) ==
LOC: ER 09:33
DX: H81.391 Other peripheral vertigo, right ear (principal); H65.01 Acute serous otitis media, right ear; R42 Dizziness and giddiness; R10.9 Unspecified abdominal pain; R11.2 Nausea with vomiting, unspecified; E11.9 Type 2 diabetes mellitus without complications
CPT/HCPCS: 36415; 70450; 70496; 70498; 70551; 80053; 82565; 83690; 84484; 85025; 96361; 96374; 96375; 99285; J2405; J2765; J3360; J7030; J7050; J8597; Q9967

== ENCOUNTER 2024-06-24 20:10 | Emergency (ER) | payer SELFPAY ==
[2024-06-24 21:05] LABS: Absolute Basophils 0.1 K/uL (0-0.5); Absolute Eosinophils 0.1 K/uL (0-0.5); Absolute Lymphocytes (CBC) 4.7 K/uL (0.7-4.9); Absolute Monocytes 0.8 K/uL (0.1-1.3); Absolute Neutrophil 7.9 K/uL (1.8-8.0); Basophils % 0.7 % (0-1.3); Eosinophils % 1.1 % (0-4.4); Hematocrit 44.1 % (36.0-45.0); Hemoglobin 15.3 g/dL (12.0-15.0); Lymphocytes % 34.5 % (15.3-44.8); MCH 32.1 pg (27.0-35.0); MCHC 34.6 g/dL (32.0-36.0); MCV 92.7 fL (80-100); MPV 8.5 fL (7.6-11.3); Monocytes % 5.9 % (3.3-12.3); Neutrophils % 57.8 % (41.7-73.7); Nucleated Red Blood Cells % 0.1 % (0-0); Platelets 295 thou/uL (152-406); RBC Red Blood Cell Count 4.76 M/uL (3.86-4.86); Red Cell Distribution Width 13.2 % (12.1-15.2)
[2024-06-24 21:18] LABS: Albumin 3.2 g/dL (3.4-5.0); Albumin/Globulin Ratio 0.7 (1.1-1.8); Anion Gap 12.9 mEq/L (5.0-15.0); Bilirubin Total 0.3 mg/dL (0.2-1.0); Globulin 4.3 g/dL (2.3-3.5); Potassium 3.9 mEq/L (3.5-5.1); Protein, Total 7.5 g/dL (6.4-8.2)
[2024-06-24 21:39] LABS: Specific Gravity > 1.030 (1.005-1.030); Urine Bilirubin NEGATIVE (Negative); Urine Blood Trace (Negative); Urine Clarity Clear (Clear); Urine Color Colorless (Yellow); Urine Glucose 4+ (Over) (Negative); Urine Ketones NEGATIVE (Negative); Urine Microscopic Reflex YN NO UMIC; Urine Nitrite NEGATIVE (Negative); Urine Protein NEGATIVE (Negative); Urine Urobilinogen Normal (Normal)
[2024-06-24 21:41] LABS: Specific Gravity > 1.030 (1.005-1.030)
[2024-06-24] MEDS ORDERED: ONDANSETRON 4 MG/2 ML VIAL ONE (22:03)
[2024-06-24] MEDS ORDERED: KETOROLAC 30 MG/ML INJ ONE (22:03)
--- NOTE | 2024-06-24 23:58 | RAD REPORT ---
EXAM DESCRIPTION: Abdomen Pelvis W Contrast RadLex: CT ABDOMEN PELVIS WITH IV CONTRAST CLINICAL HISTORY: 53 years Female; left upper abdomen pain; IV ONLY Bed Name: 18 TECHNIQUE: CT of the abdomen and pelvis [with] intravenous contrast. All CT scans at this facility use dose modulation, iterative reconstruction, and/or weight based dosi ng when appropriate to reduce radiation dose to as low as reasonably achievable. COMPARISON: CT abdomen pelvis 06/15/2022. FINDINGS: Lower thorax: Lung bases are clear Abdomen: Stomach: Within normal limits Liver: No focal lesions. Hepatic steatosis. Enlarged. No intrahepatic ductal distention. Gallbladder: Nondistended Pancreas: Within normal limits Spleen: Within normal limits Right kidney: No hydronephrosis. No focal lesion. Left kidney: No hydronephrosis. Cortical scarring. Renal cyst noted. Adrenal glands: Within normal limits Vascular structures: Atherosclerosis of the abdominal aorta and major branches. Nodes: No lymphadenopathy by size criteria Pelvis: Small bowel: No significant distention. Appendix: Within normal limits Colon: No distention or acute pericolonic edema. Peritoneum: No free intraperitoneal fluid or air. Bones: No acute bone findings. Bladder: Unremarkable. Reproductive organs: No acute findings. IMPRESSION: 1. No acute abdominopelvic findings. 2. Hepatic steatosis. Hepatomegaly. Electronically signed by: Ford Flores MD 06/24/2024 11:47 PM [facility] Z9 Due to temporary technical issues with the PACS/[employer] reporting system, reports are being josé luis d by the in-house radiologist without review as a courtesy to ensure prompt reporting the interpreting radiologist is fully responsible for the content of the report. Transcribed Date/Time: 06/24/2024 11:58 PM
--- NOTE | 2024-06-25 00:16 | EDPHYS ---
Physician Documentation [facility] Name: Gwendolyn Castellanos Age: 53 yrs Sex: Female : 1970 Arrival Date: 06/24/2024 Time: 20:10 Bed 18 Private MD: ED Physician Ketan Clark HPI: 06/24 20:45 This 53 yrs old Female presents to ER via Ambulatory with complaints of Abdominal Pain. cp 20:45 The patient presents with abdominal pain in the left upper quadrant. cp 20:45 Onset: The symptoms/episode began/occurred 1 week(s) ago. cp 20:45 The symptoms radiate to the left flank. Associated signs and symptoms: Pertinent cp negatives: anorexia, chest pain, constipation, diarrhea, dysuria, fever, vomiting. The symptoms are described as sharp, waxing/waning. Modifying factors: the symptoms are aggravated by breathing deeply, movement. Severity of pain: in the emergency department the pain is unchanged despite home interventions. [employer]ATE [employer]: 20:33 LMP N/A - Post-menopause, Not tm6 Historical: - Allergies: 20:36 No Known Allergies; tm6 - PMHx: 20:36 Diabetes - NIDDM; Osteoporosis; tm6 - PSHx: 20:36 None; tm6 - Immunization history:: Client reports having NOT received the Covid vaccine. - Infectious Disease History:: Denies. - Social history:: Smoking status: Patient reports the use of cigarette tobacco products, smokes one-half pack cigarettes per day, Patient/guardian denies using alcohol. ROS: 20:50 Eyes: Negative for injury, pain, redness, and discharge, cp 20:50 Constitutional: Negative for body aches, chills, fever, poor PO intake, 20:50 ENT: Negative for drainage from ear(s), ear pain, sore throat, difficulty swallowing, difficulty handling secretions, 20:50 Cardiovascular: Negative for chest pain, edema, palpitations, 20:50 Respiratory: Negative for cough, shortness of breath, wheezing, 20:50 Abdomen/GI: Positive for abdominal pain, of the left upper quadrant and left flank, Negative for vomiting, diarrhea, constipation, 20:50 : Negative for urinary symptoms, 20:50 Skin: Negative for cellulitis, rash, 20:50 Neuro: Negative for altered mental status, dizziness, headache, numbness, weakness, 20:50 All other systems are negative, Exam: 20:55 Constitutional: The patient appears in no acute distress, alert, awake, cp non-diaphoretic, non-toxic, well developed, well nourished, uncomfortable, 20:55 Head/Face: Normocephalic, atraumatic. cp 20:55 Eyes: Periorbital structures: appear normal, Conjunctiva: normal, no exudate, no injection, Sclera: no appreciated abnormality, Lids and lashes: appear normal, bilaterally, 20:55 ENT: External ear(s): are unremarkable, Nose: is normal, Mouth: Lips: moist, Oral mucosa: pink and intact, moist, Posterior pharynx: Airway: no evidence of obstruction, patent, 20:55 Chest/axilla: Inspection: normal, Palpation: crepitus, is not appreciated, tenderness, is not appreciated, 20:55 Cardiovascular: Rate: normal, Rhythm: regular, Edema: is not appreciated, JVD: is not appreciated, 20:55 Respiratory: the patient does not display signs of respiratory distress, Respirations: normal, no use of accessory muscles, no retractions, labored breathing, is not present, Breath sounds: are clear throughout, no decreased breath sounds, no stridor, no wheezing, 20:55 Abdomen/GI: Inspection: abdomen appears normal, Bowel sounds: active, all quadrants, Palpation: soft, in all quadrants, moderate abdominal tenderness, in the left upper quadrant and left upper flank, rebound tenderness, is not appreciated, involuntary guarding, is not appreciated, 20:55 Back: vertebral tenderness, is not appreciated, 20:55 Skin: cellulitis, is not appreciated, no rash present. 20:55 Neuro: Orientation: to person, place \T\ time. Mentation: is normal, Motor: moves all fours, strength is normal, Sensation: is normal, Gait: is steady, at a normal pace, without difficulty, Vital Signs: 20:32 BP 122 / 86; Pulse 95; Resp 19; Temp 98.1(O); Pulse Ox 100% on R/A; MAP 98 mmHg; Weight tm6 77.11 kg; Height 5 ft. 3 in. ; Pain 8/10; 21:30 BP 128 / 83; Pulse 83; Resp 18; Pulse Ox 98% ; cp4 22:30 BP 100 / 56; Pulse 85; Resp 18; Pulse Ox 96% ; cp4 23:30 BP 105 / 86; Pulse 85; Resp 18; Pulse Ox 100% ; cp4 06/25 00:47 BP 113 / 72; Pulse 78; Resp 18; Pulse Ox 96% ; cp4 06/24 20:32 Body Mass Index 30.11 (77.11 kg, 160.02 cm) tm6 06/24 20:32 Pain Scale: Adult 6 MDM: 06/24 20:37 Medical Screening Exam initiated 21:00 Differential diagnosis: bowel obstruction, diverticulitis, gastritis, non-specific abd cp pain, pancreatitis, Peptic Ulcer Disease, Perf. Duodenal Ulcer, Perf. Gastric Ulcer, Pyelonephritis, Ureterolithiasis, urinary tract infection. 06/25 00:15 Data reviewed: vital signs, nurses notes, lab test result(s), radiologic studies, CT cp scan, and as a result, I will discharge patient. 00:15 I considered the following discharge prescriptions or medication management in the emergency department Medications were administered in the Emergency Department. See MAR. 00:15 Care significantly affected by the following chronic conditions: Diabetes. Counseling: I had a detailed discussion with the patient and/or guardian regarding the historical points, exam findings, and any diagnostic results supporting the discharge/admit diagnosis, lab results, radiology results, to return to the emergency department if symptoms worsen or persist or if there are any questions or concerns that arise at home. Response to treatment: the patient's symptoms have mildly improved after treatment, and as a result, I will discharge patient. Special discussion: Based on the patient's Hx, exam, and Dx evaluation, there is no indication for emergent surgery or inpatient Tx. It is understood by the patient/guardian that if the Sx's persist or worsen they need to return immediately for re-evaluation. 06/24 20:38 Order name: CBC with Diff; Complete Time: 21:41 06/24 21:41 Interpretation: WBC 13.70; HGB 15.3. 06/24 20:38 Order name: CMP; Complete Time: 21:41 06/24 21:41 Interpretation: Normal except: NA 132; GLUC 376; GFR 69; ALB 3.2; GLOB 4.3; A/G 0.7. 06/24 20:38 Order name: Lipase; Complete Time: 21:41 cp 06/24 20:38 Order name: Test, Urine; Complete Time: 21:41 cp 06/24 20:38 Order name: Urinalysis w/ reflexes; Complete Time: 21:41 cp 06/24 22:20 Order name: CT Abd/Pelvis - IV Contrast Only cp 06/24 20:38 Order name: IV Saline Lock; Complete Time: 20:43 cp 06/24 20:38 Order name: Labs collected and sent; Complete Time: 20:43 cp Administered Medications: 06/24 22:05 Drug: TORadol - Ketorolac IVP 15 mg IVP once Route: IVP; Site: right antecubital; cp4 06/25 00:47 Follow up: Response: No adverse reaction cp4 06/24 22:05 Not Given (Patient Refused): ondansetron 4 mg IVP once; over 2 minutes cp4 Disposition Summary: 06/25/24 00:16 Discharge Ordered Notes: Location: Home cp Problem: new cp Symptoms: have improved cp Condition: Stable cp Diagnosis - Upper abdominal pain, unspecified cp Followup: cp - With: Private Physician - When: 2 - 3 days - Reason: Worsening of condition Discharge Instructions: - Discharge Summary Sheet cp - Abdominal Pain, Adult cp - Musculoskeletal Pain cp Forms: - Medication Reconciliation Form cp - Antibiotic Education cp - Prescription Opioid Use cp - Patient Portal Instructions cp - Leadership Thank You Letter cp Prescriptions: - Anaprox DS 550 mg Oral Tablet - take 1 tablet ORAL route every 12 hours As needed; 20 tablet; Refills: 0, cp Product Selection Permitted - methocarbamol 750 mg Oral tablet - take 1 tablet ORAL route 3 times per day; 30 tablet; Refills: 0, Product cp Selection Permitted Signatures: Dispatcher [employer] EDMS Harjit Walton PA PA cp Potter, Christina cp4 Jessica Queen RN RN tm6 Corrections: (The following items were deleted from the chart) 20:38 20:38 CBC+H.LAB.BRZ ordered. EDMS EDMS 20:38 20:38 COMPREHENSIVE METABOLIC PANEL+C.LAB.BRZ ordered. EDMS EDMS 20:38 20:38 LIPASE+C.LAB.BRZ ordered. EDMS EDMS 20:38 20:38 Test, Urine+UC.LAB.BRZ ordered. EDMS EDMS 20:38 20:38 Urinalysis+U.LAB.BRZ ordered. EDMS EDMS 06/26 00:06/24 20:45 The patient presents with abdominal pain in the right upper quadrant, cp cp 06/26 00:06/24 20:45 Associated signs and symptoms: Pertinent positives: diarrhea, nausea, cp Pertinent negatives: anorexia, dysuria, fever, vomiting, cp 06/26 00:06/24 20:45 The symptoms are described as waxing/waning, cp cp 06/26 00:06/25 20:50 Constitutional: Negative for body aches, chills, fever, poor PO intake, cp cp 06/26 00:06/25 20:50 Cardiovascular: Negative for chest pain, edema, palpitations, cp cp 06/26 00:06/25 20:50 Respiratory: Negative for cough, shortness of breath, wheezing, cp cp 06/26 00:06/25 20:50 Abdomen/GI: Positive for abdominal pain, of the left upper quadrant and cp left flank, Negative for vomiting, diarrhea, constipation, cp 06/26 00:06/25 20:50 : Negative for urinary symptoms, cp cp 06/26 00:06/25 20:50 Skin: Negative for cellulitis, rash, cp cp 06/26 00:06/25 20:50 Neuro: Negative for altered mental status, dizziness, headache, numbness, cp weakness, cp 06/26 00:06/25 20:50 Eyes: Negative for injury, pain, redness, and discharge, cp cp 06/26 00:06/25 20:50 ENT: Negative for drainage from ear(s), ear pain, sore throat, difficulty cp swallowing, difficulty handling secretions, cp 06/26 00:06/25 20:50 All other systems are negative, cp cp
--- NOTE | 2024-06-25 00:16 | ER ---
Nurse's Notes [facility] Name: Gwendolyn Castellanos Age: 53 yrs Sex: Female : 1970 Arrival Date: 06/24/2024 Time: 20:10 Bed 18 Private MD: Diagnosis: Upper abdominal pain, unspecified Presentation: 06/24 20:33 Chief complaint: Patient states: starting Thursday with LUQ abdominal pain. Feels like tm6 a sharp pain that is constant. It is difficult to sleep because it hurts so much. No n/v/d, no fever. Coronavirus screen: Client denies travel out of the [place] in the last 14 days. Ebola Screen: Patient negative for fever greater than or equal to 101.5 degrees Fahrenheit, and additional compatible Ebola Virus Disease symptoms Patient denies exposure to infectious person. Patient denies travel to an Ebola-affected area in the 21 days before illness onset. No symptoms or risks identified at this time. Initial Sepsis Screen: Does the patient meet any 2 criteria? No. Patient's initial sepsis screen is negative. Does the patient have a suspected source of infection? No. Patient's initial sepsis screen is negative. Risk Assessment: Do you want to hurt yourself or someone else? Patient reports no desire to harm self or others. Onset of symptoms was June 18, 2024. 20:33 Method Of Arrival: Ambulatory tm6 20:33 Acuity: TERESA 3 tm6 Triage Assessment: 20:33 General: Appears in no apparent distress. uncomfortable, Behavior is calm, cooperative. tm6 Pain: Complains of pain in left upper quadrant Pain currently is 8 out of 10 on a pain scale. Quality of pain is described as sharp, Pain began one week ago Is continuous. EENT: No signs and/or symptoms were reported regarding the EENT system. Neuro: Level of Consciousness is awake, alert, obeys commands, Oriented to person, place, time, situation. Cardiovascular: Patient's skin is warm and dry. Respiratory: Airway is patent Respiratory effort is even, unlabored, Respiratory pattern is regular, symmetrical. GI: Abdomen is round non-distended, Reports upper abdominal pain, Pain is 8 out of 10 on a pain scale. since 06/18/24. : No signs and/or symptoms were reported regarding the genitourinary system. Derm: No signs and/or symptoms reported regarding the dermatologic system. Musculoskeletal: Reports pain in left upper quadrant since 06/18/24. Pain is 8 out of 10 on a pain scale. DIRECTOR SUPPLY: 20:33 LMP N/A - Post-menopause, Not tm6 Historical: - Allergies: 20:36 No Known Allergies; tm6 - PMHx: 20:36 Diabetes - NIDDM; Osteoporosis; tm6 - PSHx: 20:36 None; tm6 - Immunization history:: Client reports having NOT received the Covid vaccine. - Infectious Disease History:: Denies. - Social history:: Smoking status: Patient reports the use of cigarette tobacco products, smokes one-half pack cigarettes per day, Patient/guardian denies using alcohol. Screenin:40 [facility] ED Fall Risk Assessment (Adult) History of falling in the last 3 months, cp4 including since admission No falls in past 3 months (0 pts) Confusion or Disorientation No (0 pts) Intoxicated or Sedated No (0 pts) Impaired Gait No (0 pts) Mobility Assist Device Used No (0 pt) Altered Elimination No (0 pt) Score/Fall Risk Level 0 - 2 = Low Risk Oriented to surroundings, Maintained a safe environment, Assessed \T\ reinforced patient's understanding of fall precautions, Hourly rounding (assess needs \T\ fall precautionary measures) done. Abuse screen: Denies threats or abuse. Nutritional screening: No deficits noted. Tuberculosis screening: No symptoms or risk factors identified. Assessment: 21:40 General: Appears in no apparent distress. comfortable, Behavior is calm, cooperative, cp4 appropriate for age. Pain: Complains of pain in abdomen and left upper quadrant Pain currently is 7 out of 10 on a pain scale. Neuro: Level of Consciousness is awake, alert, obeys commands, Oriented to person, place, time, situation. Cardiovascular: Patient's skin is warm and dry. Respiratory: Airway is patent Respiratory effort is even, unlabored. GI: Bowel sounds present X 4 quads. Abd is soft and non tender X 4 quads. : No signs and/or symptoms were reported regarding the genitourinary system. EENT: No signs and/or symptoms were reported regarding the EENT system. Derm: No signs and/or symptoms reported regarding the dermatologic system. Musculoskeletal: No signs and/or symptoms reported regarding the musculoskeletal system. 22:30 Reassessment: Patient appears in no apparent distress at this time. Patient and/or cp4 family updated on plan of care and expected duration. Pain level reassessed. Patient is alert, oriented x 3, equal unlabored respirations, skin warm/dry/pink. 23:30 Reassessment: Patient appears in no apparent distress at this time. Patient and/or cp4 family updated on plan of care and expected duration. Pain level reassessed. Patient is alert, oriented x 3, equal unlabored respirations, skin warm/dry/pink. 06/25 00:30 Reassessment: Patient appears in no apparent distress at this time. Patient and/or cp4 family updated on plan of care and expected duration. Pain level reassessed. Patient is alert, oriented x 3, equal unlabored respirations, skin warm/dry/pink. Vital Signs: 06/24 20:32 BP 122 / 86; Pulse 95; Resp 19; Temp 98.1(O); Pulse Ox 100% on R/A; MAP 98 mmHg; Weight tm6 77.11 kg; Height 5 ft. 3 in. ; Pain 8/10; 21:30 BP 128 / 83; Pulse 83; Resp 18; Pulse Ox 98% ; cp4 22:30 BP 100 / 56; Pulse 85; Resp 18; Pulse Ox 96% ; cp4 23:30 BP 105 / 86; Pulse 85; Resp 18; Pulse Ox 100% ; cp4 06/25 00:47 BP 113 / 72; Pulse 78; Resp 18; Pulse Ox 96% ; cp4 06/24 20:32 Body Mass Index 30.11 (77.11 kg, 160.02 cm) tm6 06/24 20:32 Pain Scale: Adult tm6 ED Course: 06/24 20:14 Patient arrived in ED. gm2 20:24 Harjit Walton PA is PHCP. cp 20:24 Ketan Clark MD is Attending Physician. cp 20:35 Triage completed. tm6 20:36 Arm band placed on right wrist. tm6 20:43 Inserted saline lock: 20 gauge in right antecubital area, using aseptic technique. tm6 Blood collected. Flushed with 10 mL NS. 21:40 Bed in low position. Call light in reach. Side rails up X 1. Provided Education on: cp4 abdominal pain. 21:40 No provider procedures requiring assistance completed. cp4 21:59 Samina Washburn is Primary Nurse. cp4 23:16 CT Abd/Pelvis - IV Contrast Only In Process Unspecified. EDMS 06/25 00:48 intact, bleeding controlled, No redness/swelling at site. Pressure dressing applied. cp4 Administered Medications: 06/24 22:05 Drug: TORadol - Ketorolac IVP 15 mg IVP once Route: IVP; Site: right antecubital; cp4 06/25 00:47 Follow up: Response: No adverse reaction cp4 06/24 22:05 Not Given (Patient Refused): ondansetron 4 mg IVP once; over 2 minutes cp4 Medication: 21:40 VIS not applicable for this client. cp4 Outcome: 06/25 00:16 Discharge ordered by MD. cp 00:48 Discharged to home ambulatory, cp4 00:48 Condition: stable 00:48 Discharge instructions given to patient, Instructed on discharge instructions, follow up and referral plans. Demonstrated understanding of instructions, follow-up care, medications, Prescriptions given X 2, 00:49 Patient left the ED. cp4 Signatures: Dispatcher [employer] EDPR Harjit Walton PA PA cp Potter, Christina cp4 Lidya Rush 2 Jessica Queen RN RN tm6
[2024-06-25 00:53] VITALS: TEMP 98.1
[2024-06-25 00:58] VITALS: BP 113/72; O2SAT 96
== END 2024-06-25 00:49 | disposition home or self-care (01) ==
LOC: ER 20:10
DX: R10.12 Left upper quadrant pain (principal); F17.210 Nicotine dependence, cigarettes, uncomplicated
CPT/HCPCS: 36415; 74177; 80053; 81003; 81025; 83690; 85025; 96374; 99284; J2405; Q9967